=== PATIENT | female | born 1950 | race Caucasian/White ===

== ENCOUNTER 2017-01-24 21:05 | Emergency (ER) | payer MEDICARE ==
[2017-01-24 21:13] VITALS: BP 118/74; PULSE 91; RESP 18; TEMP 99
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
--- NOTE | 2017-01-24 21:41 | XR ---
EXAMINATION TYPE: XR hand complete LT DATE OF EXAM: 01/24/2017 COMPARISON: NONE HISTORY: Pain TECHNIQUE: 3 views FINDINGS: Metacarpals are intact. I see no fracture nor dislocation. There is minor spurring of the I P joints. IMPRESSION: Mild osteoarthritis. No fracture.
--- NOTE | 2017-01-24 21:42 | XR ---
EXAMINATION TYPE: XR wrist complete LT DATE OF EXAM: 01/24/2017 COMPARISON: NONE HISTORY: Pain TECHNIQUE: 4 views FINDINGS: I see no fracture nor dislocation. Joint spaces are normal. IMPRESSION: Negative left wrist exam.
== END 2017-01-24 21:56 | disposition home or self-care (01) ==
LOC: EC 21:05
DX: S60.222A Contusion of left hand, initial encounter (principal); E07.9 Disorder of thyroid, unspecified; F41.9 Anxiety disorder, unspecified; F17.200 Nicotine dependence, unspecified, uncomplicated; Z79.82 Long term (current) use of aspirin; Z79.899 Other long term (current) drug therapy; Z88.5 Allergy status to narcotic agent; W01.0XXA Fall on same level from slipping, tripping and stumbling without subsequent striking against object, initial encounter
CPT/HCPCS: 99284

== ENCOUNTER → 2017-05-11 | Outpatient (CLI) | payer MEDICARE ==
--- NOTE | 2017-05-11 15:42 | XR ---
EXAMINATION TYPE: XR abdomen 2V DATE OF EXAM: 05/11/2017 COMPARISON: NONE HISTORY: Abdominal pain TECHNIQUE: One view abdominal series FINDINGS: The osseous structures are intact. The bowel gas pattern is nonspecific. There is extensive retained fecal debris. Degenerative change of the lumbar spine noted. Mild diffuse osteopenia. Previous surge ry involving the left hip. IMPRESSION: 1. Nonspecific abdomen. Correlate for constipation.
== END | disposition home or self-care (01) ==
LOC: RADXRYALE 14:16
PROVIDERS: ATTEND Physician Assistant Medical
DX: K59.03 Drug induced constipation (principal)
CPT/HCPCS: 74020

== ENCOUNTER 2017-08-25 09:01 | Day surgery (SDC) | payer MEDICARE ==
[2017-08-24 10:05] VITALS: BMI 22.3
[~2017-08-25 09:01] MED LIST: LACTATED RINGERS 1,000 ML IV SCH
[2017-08-25 09:37] VITALS: RESP 16; TEMP 97.9
[2017-08-25] MEDS ORDERED: LIDOCAINE 1% 20 ML VIAL (10MG/ML) FOR IV START INTRADERMA ONE (09:47)
[2017-08-25] MEDS ORDERED: PROPOFOL 10 MG/ML 20 ML VIAL IV ONE (10:29)
[2017-08-25] MEDS ORDERED: LIDOCAINE 1% INJ 10MG/ML (20 ML MDV) ONE (10:29)
[2017-08-25 11:40] VITALS: BP 111/69; PULSE 78
--- NOTE | 2017-08-25 11:55 | P.PCN ---
Date of Procedure: 08/25/17 Procedure(s) Performed: Procedure: Total colonoscopy. Preoperative diagnosis: Change in bowel habits and change in the stools. Postoperative diagnosis: Less than ideal preparation, otherwise, exam to the cecum showed no obvious abnormalities. Preparation: HalfLytely prep. Sedation: Was provided by anesthesia. Brief clinical history: The patient is 66-year-old female was been having issues with worsening constipation and small stools. She had chronic constipation but this has gotten worse. No bleeding or other alarm symptoms. She has some dullness pain in the back on the left side. Her last colonoscopy was in 2010. Procedure: With the patient on her left lateral decubitus position and after informed consent and adequate sedation, the perianal area was inspected and it did not show any fissures or fistulas. There were no masses felt on digital rectal examination. The Olympus CFQ 160L video colonoscope was initially used and was inserted in the rectum and advanced advanced, however, I was not able to keep the lumen distended with this endoscope and I restarted the exam using the pediatric CFH 190 AL videocolonoscope. The preparation was less than ideal and there was thick secretions and fecal debris that could not be suctioned totally consistently. There was no obvious abnormalities seen and, where visualized, the mucosa appeared healthy. I retroflexed the endoscope in the rectum before the endoscope was withdrawn. The patient tolerated the procedure well. Plan: The patient was reassured. She is scheduled for a CT of the abdomen and pelvis next week. Further plans can then be made based on her course and these findings. I would be happy to see in the office if she continues to have these problems. She will follow-up with you as planned.
== END 2017-08-25 12:02 | disposition home or self-care (01) ==
LOC: ORWHC2ENDO 09:01
DX: K59.09 Other constipation (principal); M54.9 Dorsalgia, unspecified; M19.90 Unspecified osteoarthritis, unspecified site; E07.9 Disorder of thyroid, unspecified; F41.9 Anxiety disorder, unspecified; F32.9 Major depressive disorder, single episode, unspecified; Z79.2 Long term (current) use of antibiotics; Z79.890 Hormone replacement therapy; Z79.891 Long term (current) use of opiate analgesic; Z79.899 Other long term (current) drug therapy; Z79.82 Long term (current) use of aspirin; Z88.5 Allergy status to narcotic agent; Z88.2 Allergy status to sulfonamides; F17.210 Nicotine dependence, cigarettes, uncomplicated
CPT/HCPCS: 45378; J2001; J2704

== ENCOUNTER → 2017-08-29 | Outpatient (CLI) | payer MEDICARE ==
[2017-08-29 14:54] LABS: Blood Urea Nitrogen 16 mg/dL (7-17)
--- NOTE | 2017-08-30 08:10 | CT ---
EXAMINATION TYPE: CT abdomen pelvis w con DATE OF EXAM: 08/29/2017 HISTORY: Patient complains of constipation, bloating, and generalized abdominal pain. CT DLP: 371.7mGycm Automated Exposure Control for Dose Reduction was Utilized. CONTRAST: CT scan of the abdomen and pelvis is performed with IV Contrast, patient injected with 100 mL of Omni paque 300. COMPARISON: FINDINGS: LUNG BASES: No significant abnormality is appreciated. LIVER/GB: Liver is unremarkable in enhancement without ductal dilatation. No cholelithiasis. PANCREAS: No significant abnormality is seen. No ductal dilatation. SPLEEN: No significant abnormality is seen. No splenomegaly. ADRENALS: No nodularity or thickening. KIDNEYS: There is obscuration of the right kidney such as on delayed series 7 image 36 and 30 as well as 29 and 28 and series 3 image 29. No hydronephrosis. BOWEL: There is a small posterior medial gastric fundal diverticulum on series 3 image 11 and series 8 image 46. There is a large amount retained colonic stool limiting evaluation of the large bowel. Or al contrast has not progressed into the colon, which also limits evaluation. No bowel dilatation. UTERUS/ADNEXA: Uterus appears surgically absent. Ovaries are not visualized and may be atrophied or s urgically absent. LYMPH NODES: No greater than 1cm abdominal or pelvic lymph nodes are appreciated. OSSEOUS STRUCTURES: Multilevel moderate degenerative disc disease is seen in the lower lumbosacral sp ine with vacuum disc disease at L4-L5 and L5-S1 and air extending into the spinal canal at L4-L5. OTHER: Moderate calcific atheromatous changes are seen in the abdominal aorta and its branches. IMPRESSION: 1. Large amount of retained colonic stool indicating increased transit time/constipation as no oral c ontrast has progressed into the colon. No evidence of bowel obstruction. 2. Subtle striated right nephrogram which can be seen in pyelonephritis, acute renal vein thrombosis, following renal contusion, or hypotension. Correlate with urinalysis. No gross evidence of renal vei n thrombosis. 3. Small posterior medial gastric fundal diverticulum. 4. Moderate degenerative disc disease of the lower lumbosacral spine.
== END | disposition home or self-care (01) ==
LOC: RADCTMAIN 14:12
PROVIDERS: ATTEND Family Medicine
DX: K59.00 Constipation, unspecified (principal); K31.4 Gastric diverticulum
CPT/HCPCS: 82565; 84520; 74177; 36415; Q9967

== ENCOUNTER → 2018-01-02 | Outpatient (CLI) | payer MEDICARE ==
--- NOTE | 2018-01-02 13:55 | XR ---
EXAMINATION TYPE: XR Hip Complete RT DATE OF EXAM: 01/02/2018 COMPARISON: NONE HISTORY: 67-year-old female with right hip pain TECHNIQUE: 2 views FINDINGS: There is mild superolateral joint space narrowing and mild degenerative spurring of the right hip. No acute fracture, subluxation, or dislocation seen. IMPRESSION: Mild degenerative change of the right hip. No acute osseous abnormality seen.
== END | disposition home or self-care (01) ==
LOC: RADXRYALE 10:58
PROVIDERS: ATTEND Family Medicine
DX: M25.551 Pain in right hip (principal)
CPT/HCPCS: 73502

== ENCOUNTER → 2018-02-24 | Outpatient (CLI) | payer MEDICARE ==
--- NOTE | 2018-02-27 01:13 | MR ---
EXAMINATION TYPE: MR hip RT wo con DATE OF EXAM: 02/24/2018 COMPARISON: None HISTORY: Right hip pain for one month Standard multiplanar, multisequence MRI departmental protocol Multiplanar, multisequence images of the pelvis and right hip were acquired. FINDINGS: On the STIR images there is abnormal diffuse increased signal in the right femoral head and neck. I see no fracture line. There is no evidence of acetabular fracture. There is 8mm degenerative cyst in the left acetabulum. There is no free fluid in the pelvis. Bladder distends smoothly. There is mild right-sided hip joint effusion. There is minimal left-sided hip joint effusion. There is mild spurring of the right femoral head. There is no evidence of a pelvic mass. Sacroiliac joints appear intact. 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 Right hip joint effusion is more than the left and consistent with synovitis. No collapse is seen of the right femoral head. No fracture seen. Minimal osteoarthritis in the left hip joint.
== END | disposition home or self-care (01) ==
LOC: RADMRIMAIN 21:42
PROVIDERS: ATTEND Orthopaedic Surgery
DX: M25.451 Effusion, right hip (principal); M16.12 Unilateral primary osteoarthritis, left hip

== ENCOUNTER → 2018-06-06 | Outpatient (CLI) | payer MEDICARE ==
--- NOTE | 2018-06-06 22:54 | MR ---
EXAMINATION TYPE: MR lumbar spine wo con DATE OF EXAM: 06/06/2018 COMPARISON: CT abdomen and pelvis August 29, 2017 HISTORY: Pain lower back, hips, Bilateral legs x6 months per patient. Lumbar region radiculopathy pe r order. TECHNIQUE: Multiplanar, multisequence imaging of the lumbar spine is performed without IV contrast. FINDINGS: Sagittal images of the lumbar spine show vertebral body heights to remain satisfactory. The re is loss of normal lumbar lordosis with grade 1 retrolisthesis of L4 on L5. Multilevel disc desicca tion is present with multilevel disc space narrowing, there is relative sparing of L2-L3 level. Multi level posterior disc herniations are seen on sagittal images effacing the anterior thecal sac most pr ominent at L2-L3 and L4-L5 levels. The conus medullaris is normal in position and signal ending at mi d L1 level.. Small hemangioma inferior L1 level sagittal image 7. There is heterogeneous endplate mireya nges lower lumbar spine including Modic type II changes at L4-L5 level. Mild to moderate multilevel a nterior spurring is seen. Axial images show the T12-L1 level to appear within normal limits. Axial images at L1-L2 level show mild broad disc bulge mildly effacing anterior thecal sac, bilateral neural foramina are patent. Axial images at L2-L3 level show larger left paracentral disc herniation with superior and inferior e xtrusion component seen best sagittal image 7 of effacing the anterior thecal sac measuring 9 to 10 m m transversely axial image 18 x 23 mm craniocaudal dimension sagittal image 7. Bilateral neural kolby anita are mildly narrowed along the anterior-inferior aspect. Axial images at the L3-L4 level show mild to moderate facet degenerative changes and ligamentum flavu m hypertrophy with effacement of the posterior lateral thecal sac. There is broad-based posterior dis c protrusion effacing the anterior thecal sac, there is [id number] bilateral anterior inferior neural foraminal narrowing at this level identified. Axial images at L4-L5 level show spondylolisthesis with mild facet degenerative changes bilaterally. There is prominent left paracentral disc protrusion axial image 7 and sagittal image 7 effacing the a nterolateral thecal sac and likely central left L5 nerve axial image 5. There is moderate left-sided inferior neural foraminal narrowing and mild to moderate right-sided anterior inferior neural foramin al narrowing noted. Axial images at the L5-S1 level show broad-based posterior disc protrusion mildly effacing the anteri or thecal sac with moderate right and mild to moderate left-sided neural foraminal narrowing. There a re mild facet degenerative changes bilaterally. No suspicious incidental retroperitoneal findings are seen. IMPRESSION: Spondylolisthesis L4-L5 level. Multilevel degenerative changes as detailed above, largest herniations are noted L2-L3 and L4-L5 levels.
== END | disposition home or self-care (01) ==
LOC: RADMRIMAIN 21:19
PROVIDERS: ATTEND Physical Medicine & Rehabilitation
DX: M47.27 Other spondylosis with radiculopathy, lumbosacral region (principal); M43.16 Spondylolisthesis, lumbar region
CPT/HCPCS: 72148

== ENCOUNTER → 2019-06-18 | Outpatient (CLI) | payer MEDICARE ==
--- NOTE | 2019-06-18 10:48 | EST ---
EXERCISE STRESS AGE: 68 SEX: F HT: 5'4" WT: 130 PROTOCOL: García Stress Test STAGE: II DURATION OF EXERCISE: 6:30 HEART RATE REST: 81 BLOOD PRESSURE REST: 147/99 MAXIMUM HEART RATE ACHIEVED: 129 MAXIMUM BLOOD PRESSURE: 188/112 85% MPHR: 129 100% MPHR: 152 METS: 7.9 INDICATIONS: Chest pain. CLINICAL INFORMATION: Baseline rhythm is sinus mechanism, rate of 81, normal axis and intervals, poor R-wave progression. RSR prime baseline blood pressure 147/99 mmHg. Patient exercised on García protocol for 6 minutes 30 seconds reaching peak rate of 129 beats per minute which is equal to 85% maximum predicted heart rate. Peak blood pressure 188/112 mmHg. Test was terminated due to fatigue. There is no chest pain. Electrocardiographic monitoring revealed rare PVCs. There was no evidence of diagnostic ischemic ST deviation. CONCLUSION: 1. Average exercise tolerance. 2. Occasional premature ventricular contractions. 3. Normal echocardiograph response to exercise with no evidence of stress-induced ischemia. MMODL / IJN: [id number] /
== END | disposition home or self-care (01) ==
LOC: RADNMMAIN 08:38
PROVIDERS: ATTEND Family Medicine
DX: R07.89 Other chest pain (principal)
CPT/HCPCS: 93017

== ENCOUNTER → 2020-04-03 | Outpatient (CLI) | payer MEDICARE | END | disposition home or self-care (01) | LOC: LABWHC1 10:15 | PROVIDERS: ATTEND Family Medicine | DX: R06.00 Dyspnea, unspecified (principal) | CPT/HCPCS: U0003; C9803 ==

== ENCOUNTER 2020-05-03 12:30 | Observation (INO) | payer MEDICARE ==
[2020-05-03] MEDS ORDERED: ASPIRIN 81 MG PO STA (12:46)
[2020-05-03] MEDS ORDERED: NITROGLYCERIN SL TABS 0.4 MG TAB SUBLINGUAL STA (12:57)
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
[2020-05-03 13:34] LABS: Basophils # (A) 0.1 k/uL (0-0.2); Basophils % (A) 1 %; Eosinophils # (A) 0.2 k/uL (0-0.7); Eosinophils % (A) 3 %; HCT 43.1 % (34.0-46.0); HGB 14.1 gm/dL (11.4-16.0); Lymphocytes # (A) 1.2 k/uL (1.0-4.8); Lymphocytes % (A) 14 %; MCH 30.6 pg (25.0-35.0); MCHC 32.6 g/dL (31.0-37.0); MCV 93.6 fL (80.0-100.0); Mean Platelet Volume 6.2; Monocytes # (A) 0.5 k/uL (0-1.0); Monocytes % (A) 6 %; Neutrophils % (A) 74 %; Platelet Count 359 k/uL (150-450); RBC 4.61 m/uL (3.80-5.40); WBC 8.1 k/uL (3.8-10.6)
[2020-05-03 13:44] LABS: INR 0.9 (<1.2); Partial Thromboplastin Time 23.9 sec (22.0-30.0); Prothrombin Time 9.7 sec (9.0-12.0)
[2020-05-03 13:47] LABS: D-Dimer 1.48 mg/L FEU (<0.60)
[2020-05-03 13:48] LABS: ALT 22 U/L (4-34); AST 25 U/L (14-36); African American GFR (CKD) >90 (>60 ml/min/1.73 sqM); Albumin 4.3 g/dL (3.5-5.0); Alkaline Phosphatase 81 U/L (38-126); Anion Gap 6 mmol/L; Blood Urea Nitrogen 18 mg/dL (7-17); Calcium 9.6 mg/dL (8.4-10.2); Carbon Dioxide 27 mmol/L (22-30); Chloride 105 mmol/L (98-107); Creatine Kinase 79 U/L (30-135); Glucose 113 mg/dL (74-99); Lipase 26 U/L (23-300); Magnesium 2.1 mg/dL (1.6-2.3); Non-African American GFR(CKD) 90 (>60 ml/min/1.73 sqM); Potassium 4.4 mmol/L (3.5-5.1); Sodium 138 mmol/L (137-145); Total Bilirubin 0.5 mg/dL (0.2-1.3); Total Protein 7.4 g/dL (6.3-8.2)
--- NOTE | 2020-05-03 14:04 | XR ---
EXAMINATION TYPE: XR chest 2V DATE OF EXAM: 05/03/2020 CLINICAL HISTORY: Chest Pain. TECHNIQUE: Frontal and lateral view of the chest. COMPARISON: 12/25/2014 chest radiograph FINDINGS: Lungs are hyperinflated with interstitial coarsening. The cardiomediastinal silhouette is within normal limits for size. Pulmonary vasculature is normal. There is no focal air space opacity, pleural effusion, or pneumothorax seen. The osseous structures are intact. IMPRESSION: No acute cardiopulmonary process.
[2020-05-03] MEDS ORDERED: NITROGLYCERIN SL TABS 0.4 MG TAB SUBLINGUAL PRN (15:14)
[2020-05-03] MEDS ORDERED: HEPARIN SODIUM,PORCINE 5,000 UNIT/ML 1 ML VIAL IV ONE (15:14)
--- NOTE | 2020-05-03 15:22 | CT ---
EXAMINATION TYPE: CT angio chest DATE OF EXAM: 05/03/2020 COMPARISON: None HISTORY: Chest and back pain. CT DLP: 240.9 mGycm Automated exposure control for dose reduction was used. CONTRAST: Performed with IV Contrast, patient injected with 80ml mL of Isovue 370. Images obtained from the thoracic inlet to the diaphragm with IV contrast and 3-D post processed imag es. There is 4.3 cm aneurysm of the ascending aorta. There is no dissection. Heart is slightly enlarged. There is no pericardial effusion. There are no hilar masses. There is no mediastinal adenopathy. Ther e is normal contrast opacification of the pulmonary arteries. There are no filling defects. The lungs are clear of consolidation. There is no pleural effusion. There is no evidence of a pulmona ry mass. Bony thorax is intact. IMPRESSION: No evidence of pulmonary embolism. Mild aneurysm of the ascending aorta. Effusion.
--- NOTE | 2020-05-03 15:28 | ED ---
Medical Decision Making - Medical Decision Making Imaging reviewed as well as report no evidence of PE there is a mild a recent aortic aneurysm no other findings. - Lab Data Result diagrams: 05/03/20 13:05 05/03/20 13:05 Lab Results 05/03/20 05/03/20 05/03/20 Range/Units 13:05 13:05 13:05 WBC 8.1 (3.8-10.6) k/uL RBC 4.61 (3.80-5.40) m/uL Hgb 14.1 (11.4-16.0) gm/dL Hct 43.1 (34.0-46.0) % MCV 93.6 (80.0-100.0) fL MCH 30.6 (25.0-35.0) pg MCHC 32.6 (31.0-37.0) g/dL RDW 13.0 (11.5-15.5) % Plt Count 359 (150-450) k/uL Neutrophils % 74 % Lymphocytes % 14 % Monocytes % 6 % Eosinophils % 3 % Basophils % 1 % Neutrophils # 6.0 (1.3-7.7) k/uL Lymphocytes # 1.2 (1.0-4.8) k/uL Monocytes # 0.5 (0-1.0) k/uL Eosinophils # 0.2 (0-0.7) k/uL Basophils # 0.1 (0-0.2) k/uL PT 9.7 (9.0-12.0) sec INR 0.9 (<1.2) APTT 23.9 (22.0-30.0) sec D-Dimer 1.48 H (<0.60) mg/L FEU Sodium 138 (137-145) mmol/L Potassium 4.4 (3.5-5.1) mmol/L Chloride 105 (98-107) mmol/L Carbon Dioxide 27 (22-30) mmol/L Anion Gap 6 mmol/L BUN 18 H (7-17) mg/dL Creatinine 0.68 (0.52-1.04) mg/dL Est GFR (CKD-EPI)AfAm >90 (>60 ml/min/1.73 sqM) Est GFR (CKD-EPI)NonAf 90 (>60 ml/min/1.73 sqM) Glucose 113 H (74-99) mg/dL Calcium 9.6 (8.4-10.2) mg/dL Magnesium 2.1 (1.6-2.3) mg/dL Total Bilirubin 0.5 (0.2-1.3) mg/dL AST 25 (14-36) U/L ALT 22 (4-34) U/L Alkaline Phosphatase 81 (38-126) U/L Creatine Kinase 79 (30-135) U/L Troponin I (0.000-0.034) ng/mL NT-Pro-B Natriuret Pep pg/mL Total Protein 7.4 (6.3-8.2) g/dL Albumin 4.3 (3.5-5.0) g/dL Lipase 26 (23-300) U/L 05/03/20 05/03/20 Range/Units 13:05 13:05 WBC (3.8-10.6) k/uL RBC (3.80-5.40) m/uL Hgb (11.4-16.0) gm/dL Hct (34.0-46.0) % MCV (80.0-100.0) fL MCH (25.0-35.0) pg MCHC (31.0-37.0) g/dL RDW (11.5-15.5) % Plt Count (150-450) k/uL Neutrophils % % Lymphocytes % % Monocytes % % Eosinophils % % Basophils % % Neutrophils # (1.3-7.7) k/uL Lymphocytes # (1.0-4.8) k/uL Monocytes # (0-1.0) k/uL Eosinophils # (0-0.7) k/uL Basophils # (0-0.2) k/uL PT (9.0-12.0) sec INR (<1.2) APTT (22.0-30.0) sec D-Dimer (<0.60) mg/L FEU Sodium (137-145) mmol/L Potassium (3.5-5.1) mmol/L Chloride (98-107) mmol/L Carbon Dioxide (22-30) mmol/L Anion Gap mmol/L BUN (7-17) mg/dL Creatinine (0.52-1.04) mg/dL Est GFR (CKD-EPI)AfAm (>60 ml/min/1.73 sqM) Est GFR (CKD-EPI)NonAf (>60 ml/min/1.73 sqM) Glucose (74-99) mg/dL Calcium (8.4-10.2) mg/dL Magnesium (1.6-2.3) mg/dL Total Bilirubin (0.2-1.3) mg/dL AST (14-36) U/L ALT (4-34) U/L Alkaline Phosphatase (38-126) U/L Creatine Kinase (30-135) U/L Troponin I <0.012 (0.000-0.034) ng/mL NT-Pro-B Natriuret Pep 64 pg/mL Total Protein (6.3-8.2) g/dL Albumin (3.5-5.0) g/dL Lipase (23-300) U/L Disposition Clinical Impression: Unstable angina pectoris, Chest pain, Smoker Disposition: ADMITTED IP TO THIS HOSP Condition: Fair Referrals: Sandip Gimenez DO [Primary Care Provider] - 1-2 days
[2020-05-03] MEDS ORDERED: NICOTINE 21MG/24HR PATCH TRANSDERM STA (15:35)
[2020-05-03] MEDS: SODIUM CHLORIDE 0.9% 1,000 ML IV SCH (15:49)
[2020-05-03] MEDS: HEPARIN SOD,PORK IN 0.45% NACL 25,000 UNIT in 0.45% NACL 1 250ML.BAG IV SCH (15:52)
[2020-05-03] MEDS: HYDROcodone/APAP 10-325MG 1 EACH TAB PO PRN ×2 (16:28→23:21)
[2020-05-03] MEDS: CYCLOBENZAPRINE 10 MG TAB PO SCH ×2 (16:28→23:22)
[2020-05-03] MEDS: VENLAFAXINE HCL ER 75 MG CAP PO SCH (17:47)
[2020-05-03] MEDS: NITROGLYCERIN OINT 1 INCH/GM PACKET TOPICAL SCH (17:50)
[2020-05-03] MEDS ORDERED: ALPRAZolam 0.25 MG TAB PO PRN (20:43)
--- NOTE | 2020-05-03 21:14 | HP ---
HISTORY AND PHYSICAL DATE OF SERVICE: 05/03/2020 This 69-year-old woman with a past medical history of hypothyroidism, psoriasis, constipation, cystic fibrosis being followed by Dr. Gimenez in the outpatient setting, was complaining of chest pain. The patient apparently had a recent stress test which was reported as negative. Pain started under the left breast and felt across, as a crushing pain which is radiating to the back also. The patient also had some sweating also. The patient was concerned, came to [facility] and admitted for further evaluation and treatment. The patient also admits that the patient is going through a stressful period because of the of her a year ago. Otherwise in the ER, the initial troponins are negative. The D-dimer was 1.48. Chest CTA was done which showed no evidence of pulmonary embolism. Mild aneurysm of the ascending aorta was noted and the patient admitted for further evaluation and treatment. The EKG showed left anterior hemiblock. There is no history of fever, rigors, chills at this time. PAST MEDICAL HISTORY: History of hypothyroidism, psoriasis, constipation, appendectomy and breast surgery. MEDICATIONS: Multivitamins, coenzyme Q, vitamin D3, venlafaxine, omega-3 fatty acids, levothyroxine, hydrocodone, Flexeril, aspirin. ALLERGIES: DEMEROL. FAMILY HISTORY: No history of any heart disease. Dad had abdominal aortic aneurysm and during a stress test. SOCIAL HISTORY: History of smoking. REVIEW OF SYSTEMS: ENT: No diminished vision. No diminished hearing. CARDIOVASCULAR as mentioned. RESPIRATORY: As mentioned earlier. GI no nausea or vomiting. no dysuria. NERVOUS SYSTEM: No numbness or weakness. ALLERGY/IMMUNOLOGY: No asthma or hayfever. MUSCULOSKELETAL as mentioned earlier. HEMATOLOGY/ONCOLOGY: No history of anemia. ENDOCRINE: History of diabetes and hypothyroidism. CONSTITUTIONAL: As mentioned earlier. DERMATOLOGY: Negative. RHEUMATOLOGY negative. PSYCHIATRY as mentioned. PHYSICAL EXAMINATION: Alert and oriented times three. Pulse 69. Blood pressure 137/82, respiration 18, temperature 98.1, pulse ox 99% on room air. HEENT: Conjunctivae normal. NECK: No JVD. CARDIOVASCULAR: S1, S2 muffled. RESPIRATORY SYSTEM: Breath sounds diminished at the bases. No rhonchi. No crackles. ABDOMEN: Soft, nontender. No mass palpable. LEGS: No edema. No swelling. NERVOUS SYSTEM: Higher functions as mentioned earlier. Moves all 4 limbs. No focal motor or sensory deficits. SKIN: No ulcer, no rash or bleeding. JOINTS: No active deforming arthropathy. LYMPHATICS: No lymph nodes palpable in the neck, axillae or groin. LABS: CBC within normal limits. D-dimer is 1.48 and glucose 113. ASSESSMENT: 1. Chest pain, possible unstable angina. Rule out myocardial infarction. 2. Minimal thoracic aortic aneurysm about 4.3 cm in the ascending aorta. 3. Elevated D-dimer with no evidence of pulmonary embolism. 4. Family history of abdominal aortic aneurysm. 5. Hypothyroidism. 6. History of psoriasis. 7. Possible chronic bronchitis. 8. History of constipation. 9. Cystic fibrosis. 10.Appendectomy. 11.History of cardiac catheterization. 12.History of lumpectomy. 13.History of anxiety. 14.History of continued ongoing nicotine dependence. RECOMMENDATIONS AND DISCUSSION: This 69-year-old woman who presented with multiple complex medical issues, we will monitor the patient closely, continue the current medications. Rule out myocardial infarction. Cardiology consultation. Also recommend a CT scan of the abdomen and pelvis and also cardiothoracic consultation also to complete the workup because of the family history of abdominal aortic aneurysm. Otherwise, the prognosis guarded because of the multiple complex medical issues and further recommendations to follow. A copy of this dictation being forwarded to Dr. Gimenez who is the primary physician. ALMAS / RCISTA: [id number] /
--- NOTE | 2020-05-03 21:19 | CT ---
EXAMINATION TYPE: CT abdomen pelvis wo con DATE OF EXAM: 05/03/2020 COMPARISON: 08/29/2017 HISTORY: patient denies abdominal/pelvic complaints, question AAA CT DLP: 254.7 mGycm Automated exposure control for dose reduction was used. Exam performed from the diaphragm to the floor the pelvis with no contrast. Lung bases are clear. There is no pleural effusion. There is no pericardial effusion. Heart size is n ormal. Liver spleen stomach pancreas gallbladder appear intact. Bile ducts are not dilated. There are few sm all calcified gallstones. The stomach is intact. There is retained fecal material in the large bowel. Bladder distends smoothly with contrast. There is no inguinal hernia. There is no free fluid in the pelvis. Kidneys have normal size. There is no hydronephrosis. There is no sign of retroperitoneal adenopathy. Ureters are not dilated. There is no ascites or free air. There is no sign of a bowel obstruction. There is some atheromatous change in the abdominal aorta. There is no aneurysm. Abdominal aorta measu res up to 2.8 cm. Lumbar vertebra have normal alignment. There is narrowing at L4-5 and L5-S1 disc spaces with vacuum d isc. Facet joints are intact. The bony pelvis is intact. There is intramedullary nusrat in the left femu r. IMPRESSION: Constipation. No evidence of any significant abdominal aneurysm. Atherosclerotic vascular disease. No adverse change compared to old exam.
[2020-05-03 22:45] LABS: Appearance,Urine Clear (Clear); Bilirubin,Urine Negative (Negative); Blood,Urine Negative (Negative); Color,Urine Yellow; Glucose,Urine (UA) Negative (Negative); Ketones,Urine Negative (Negative); Leukocyte Esterase,Urine Negative (Negative); Nitrite,Urine Negative (Negative); PH, Urine 6.5 (5.0-8.0); Protein,Urine Negative (Negative); Urobilinogen,Urine <2.0 mg/dL (<2.0)
[2020-05-03 22:52] LABS: Specific Gravity,Urine >1.050 (1.001-1.035)
[2020-05-04] MEDS ORDERED: HEPARIN SODIUM,PORCINE 5,000 UNIT/ML 1 ML VIAL IV PRN (00:58)
[2020-05-04] MEDS: HYDROmorphone 0.5 MG/0.5 ML SYRINGE IVP PRN ×2 (01:51→08:06)
[2020-05-04] MEDS: NITROGLYCERIN OINT 1 INCH/GM PACKET TOPICAL SCH ×5 (02:17→22:58)
[2020-05-04] MEDS ORDERED: LEVOTHYROXINE 112 MCG TAB PO SCH (06:30)
[2020-05-04] MEDS: PANTOPRAZOLE 40 MG TABLET PO SCH (06:42)
[2020-05-04 06:56] LABS: Basophils # (A) 0.1 k/uL (0-0.2); Basophils % (A) 1 %; Eosinophils # (A) 0.3 k/uL (0-0.7); Eosinophils % (A) 4 %; HCT 41.6 % (34.0-46.0); HGB 13.2 gm/dL (11.4-16.0); Lymphocytes # (A) 1.5 k/uL (1.0-4.8); Lymphocytes % (A) 24 %; MCH 30.4 pg (25.0-35.0); MCHC 31.8 g/dL (31.0-37.0); MCV 95.6 fL (80.0-100.0); Mean Platelet Volume 6.7; Monocytes # (A) 0.4 k/uL (0-1.0); Monocytes % (A) 7 %; Neutrophils # (A) 3.7 k/uL (1.3-7.7); Neutrophils % (A) 61 %; Platelet Count 317 k/uL (150-450); RBC 4.35 m/uL (3.80-5.40); WBC 6.1 k/uL (3.8-10.6)
[2020-05-04 07:05] LABS: African American GFR (CKD) >90 (>60 ml/min/1.73 sqM); Anion Gap 6 mmol/L; Blood Urea Nitrogen 18 mg/dL (7-17); Calcium 9.3 mg/dL (8.4-10.2); Carbon Dioxide 26 mmol/L (22-30); Chloride 105 mmol/L (98-107); Cholesterol 236 mg/dL (<200); Glucose 105 mg/dL (74-99); HDL Cholesterol 86 mg/dL (40-60); LDL Cholesterol,Calculated 139 mg/dL (0-99); Non-African American GFR(CKD) >90 (>60 ml/min/1.73 sqM); Potassium 4.5 mmol/L (3.5-5.1); Sodium 137 mmol/L (137-145); Triglycerides 56 mg/dL (<150)
[2020-05-04] MEDS: CYCLOBENZAPRINE 10 MG TAB PO SCH ×3 (08:06→23:01)
[2020-05-04] MEDS: VENLAFAXINE HCL ER 75 MG CAP PO SCH (08:06)
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
[2020-05-04] MEDS ORDERED: NON FORMULARY DRUG (Glucosamine/Chondr Su A Sod [Osteo Bi-Flex Caplet] 1 EACH Tablet) PO SCH (09:00)
[2020-05-04] MEDS ORDERED: NON FORMULARY DRUG (Omega-3 Fatty Acids/Fish Oil [Fish Oil 1,000 Mg Softgel] 1 EACH Capsul PO SCH (09:00)
[2020-05-04] MEDS ORDERED: VENLAFAXINE HCL ER 75 MG CAP PO SCH (09:00)
[2020-05-04] MEDS ORDERED: ASPIRIN 325 MG TAB PO SCH (09:00)
[2020-05-04] MEDS ORDERED: CAFFEINE CITRATE 60 MG/3 ML VIAL IV PRN (10:30)
[2020-05-04] MEDS ORDERED: AMINOPHYLLINE 500 MG/20 ML VIAL IV PRN (10:30)
[2020-05-04] MEDS ORDERED: polyethylene glycoL 3350 17 GM POWD.PACK PO PRN (11:27)
[2020-05-04] MEDS ORDERED: DOCUSATE 100 MG CAP PO PRN (11:28)
[2020-05-04 11:30] LABS: T4, Free (Free Thyroxine) 0.62 ng/dL (0.78-2.19)
[2020-05-04] MEDS ORDERED: MULTIVITAMINS, THERA 1 EACH TAB PO SCH (12:00)
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
--- NOTE | 2020-05-04 16:08 | PN ---
PROGRESS NOTE DATE OF SERVICE: 05/04/2020 This 63-year-old woman who was admitted with chest pain is being evaluated at this time. The patient had a 4.3 cm small ascending aortic aneurysm without any evidence of dissection, which was reviewed by cardiothoracic who recommend yearly followup with CT scans. Otherwise, patient also had family history of abdominal aortic aneurysm, but CT scan of the brain did not show any evidence of abdominal aortic aneurysm currently. The patient also has hyperlipidemia with serum cholesterol elevated up to 236, LDL is 139. Patient also has hypothyroidism. TSH is 7.27 and free T4 0.62. PAST MEDICAL HISTORY: Reviewed. REVIEW OF SYSTEMS: CARDIOVASCULAR: No angina or palpitations. RESPIRATORY: As mentioned earlier. GI: As mentioned earlier. : No dysuria. NERVOUS SYSTEM: No numbness or weakness. CURRENT MEDICATIONS: Reviewed and include [place], Xanax, aspirin, Lipitor, Flexeril, Colace, heparin, Dilaudid, Synthroid, multivitamins, Nitrostat MiraLAX, Protonix, Nitro-Bid ointment, Effexor. PHYSICAL EXAM: Patient is alert, oriented x3. Pulse is blood pressure 120/70, respiration 18, temperature 97.2, pulse ox 94% on room air. HEENT: Conjunctivae normal. Oral mucosa moist. NECK: No jugular venous distention. No lymph node enlargement. CARDIOVASCULAR: S1, S2, muffled. No S3, no S4, RESPIRATORY: Diminished breath sounds at the bases. No rhonchi, no crackles. ABDOMEN: Soft, nontender. LEGS: No edema, no swelling. NERVOUS SYSTEM: No focal motor or sensory deficits. LABS: At this time show CBC within normal limits. Sodium 137. Other labs are noted. Glucose 105. ASSESSMENT: 1. Chest pain, possible unstable angina. Myocardial infarction ruled out. Rule out coronary artery disease. 2. Minimal thoracic aortic aneurysm, about 4.3 cm in the ascending aorta. 3. Elevated D-dimer with no evidence of pulmonary embolism. 4. Hyperlipidemia. 5. Family history of abdominal aortic aneurysm. 6. Hypothyroidism. 7. History of psoriasis. 8. Possible chronic bronchitis. 9. History of constipation. 10.History of cystic fibrosis. 11.History of appendectomy. 12.History of cardiac catheterization. 13.History of lumpectomy. 14.History of anxiety. 15.History of continued ongoing nicotine dependence. RECOMMENDATIONS: Recommend to continue current medications, continue symptomatic treatment. Otherwise at this time, unstable angina protocol, stress test tomorrow. I would also recommend add Lipitor to the current regimen. Cardiothoracic surgery recommendations noted. Yearly followup as recommended. Otherwise, closely follow with Cardiology and I would also increase the dose of levothyroxine to 150 mcg p.o. daily. Recommend close follow with Dr. Gimenez, who is the primary physician. MMDARRIUSL / LOVEN: [id number] /
[2020-05-04] MEDS: HEPARIN SOD,PORK IN 0.45% NACL 25,000 UNIT in 0.45% NACL 1 250ML.BAG IV SCH (19:53)
[2020-05-04] MEDS: HYDROcodone/APAP 10-325MG 1 EACH TAB PO PRN (20:38)
[2020-05-04] MEDS: SODIUM CHLORIDE 0.9% 1,000 ML IV SCH (20:41)
[2020-05-04] MEDS ORDERED: ATORVASTATIN 20 MG TAB PO SCH (21:00)
[2020-05-04] MEDS ORDERED: MIRTAZAPINE 15 MG TAB PO SCH (21:00)
[2020-05-05] MEDS: NITROGLYCERIN OINT 1 INCH/GM PACKET TOPICAL SCH (03:50)
[2020-05-05] MEDS: PANTOPRAZOLE 40 MG TABLET PO SCH (06:19)
[2020-05-05] MEDS ORDERED: LEVOTHYROXINE 75 MCG TAB PO SCH (06:30)
[2020-05-05 07:45] LABS: Basophils # (A) 0.1 k/uL (0-0.2); Basophils % (A) 1 %; Eosinophils # (A) 0.2 k/uL (0-0.7); Eosinophils % (A) 3 %; HCT 43.1 % (34.0-46.0); HGB 14.2 gm/dL (11.4-16.0); Lymphocytes # (A) 1.3 k/uL (1.0-4.8); Lymphocytes % (A) 19 %; MCH 30.5 pg (25.0-35.0); MCHC 32.9 g/dL (31.0-37.0); MCV 92.8 fL (80.0-100.0); Mean Platelet Volume 6.3; Monocytes # (A) 0.4 k/uL (0-1.0); Monocytes % (A) 6 %; Neutrophils # (A) 4.5 k/uL (1.3-7.7); Neutrophils % (A) 68 %; Platelet Count 357 k/uL (150-450); RBC 4.65 m/uL (3.80-5.40); RDW 12.9 % (11.5-15.5); WBC 6.6 k/uL (3.8-10.6)
[2020-05-05 07:58] LABS: African American GFR (CKD) >90 (>60 ml/min/1.73 sqM); Anion Gap 5 mmol/L; Blood Urea Nitrogen 16 mg/dL (7-17); Calcium 9.8 mg/dL (8.4-10.2); Carbon Dioxide 28 mmol/L (22-30); Chloride 105 mmol/L (98-107); Glucose 101 mg/dL (74-99); Non-African American GFR(CKD) >90 (>60 ml/min/1.73 sqM); Potassium 4.9 mmol/L (3.5-5.1); Sodium 138 mmol/L (137-145)
[2020-05-05 08:52] VITALS: BP 131/80; PULSE 83; RESP 16; TEMP 97.9
[2020-05-05] MEDS: HYDROcodone/APAP 10-325MG 1 EACH TAB PO PRN (08:53)
[2020-05-05] MEDS: VENLAFAXINE HCL ER 75 MG CAP PO SCH (08:53)
[2020-05-05] MEDS: CYCLOBENZAPRINE 10 MG TAB PO SCH (08:53)
[2020-05-05] MEDS ORDERED: REGADENOSON 0.4 MG/5 ML SYRINGE IV ONE (09:00)
[2020-05-05] MEDS ORDERED: LOSARTAN 25 MG TAB PO SCH (09:00)
[2020-05-05] MEDS ORDERED: ATORVASTATIN 10 MG TAB PO SCH (09:00)
[2020-05-05] MEDS ORDERED: ASPIRIN 81 MG PO SCH (09:00)
--- NOTE | 2020-05-05 12:32 | ECHOF ---
Referral Reason:LVF MEASUREMENTS -------- HEIGHT: 162.6 cm WEIGHT: 59.0 kg BP: IVSd: 1.3 cm (0.6 - 1.1) LVIDd: 4.1 cm (3.9 - 5.3) LVPWd: 1.3 cm (0.6 - 1.1) IVSs: 1.6 cm LVIDs: 2.5 cm LVPWs: 1.7 cm LA Diam: 3.9 cm (2.7 - 3.8) RVIDd: 2.8 cm (< 3.3) Ao Diam: 3.5 cm (2.0 - 3.7) AV Cusp: 1.9 cm (1.5 - 2.6) EPSS: 0.9 cm MV E Stephen: 0.42 m/s MV DecT: 298 ms MV A Stephen: 0.66 m/s MV E/A Ratio: 0.63 RAP: 5.00 mmHg RVSP: 20.42 mmHg MV EF SLOPE: 60.34 mm/s (70 - 150) MV EXCURSION: 15.49 mm (> 18.000) FINDINGS -------- Sinus rhythm. This was a technically good study. The left ventricular size is normal. There is mild concentric left ventricular hypertrophy. Overa ll left ventricular systolic function is low-normal with, an EF between 50 - 55 %. The right ventricle is normal in size. The left atrial size is normal. The right atrial size is normal. The aortic valve is trileaflet, and appears structurally normal. No aortic stenosis or regurgitation. Mild mitral regurgitation is present. Mild tricuspid regurgitation present. Right ventricular systolic pressure is normal at < 35 mmHg. Trace/mild (physiologic) pulmonic regurgitation. Ascending Aortic Root is dilated and measures 4.0cm. There is no pericardial effusion. CONCLUSIONS -------- 1. The left ventricular size is normal. 2. There is mild concentric left ventricular hypertrophy. 3. Overall left ventricular systolic function is low-normal with, an EF between 50 - 55 %. 4. The right ventricle is normal in size. 5. The left atrial size is normal. 6. The right atrial size is normal. 7. Mild mitral regurgitation is present. 8. Mild tricuspid regurgitation present. 9. Trace/mild (physiologic) pulmonic regurgitation. 10. Ascending Aortic Root is dilated and measures 4.0cm. 11. There is no pericardial effusion. ACTIVITY DIRECTOR: Myriam Desai RDCS
--- NOTE | 2020-05-05 12:34 | P.PN ---
Subjective History of present illness: This is a 69-year-old female with past medical history of hypothyroidism, active tobacco use and dependence. No previous cardiac history and she does not follow with a overseamer. She did have a normal exercise stress test done in May 2019. She is seen and examined sitting up eating breakfast. She was scheduled to undergo a stress test today, however she is refusing. She states today is a bad day for her, her 1-year ago today. She is willing to have an echo but would like to go home and do the stress test another day. She denies any further symptoms of chest pain. No shortness of breath, dizziness or palpitations. Blood pressure 131/80 heart rate 83 afebrile and maintaining oxygen saturation on room air. Physical examination: NECK: Supple. No JVD. No lymphadenopathy. No thyromegaly. LUNGS: Clear to auscultation bilaterally, no wheezes, rhonchi or rales. HEART: Regular rate and rhythm. No murmur, rub or gallop. EXTREMITIES: No pedal edema. No calf tenderness. Dorsalis pedis +2 bilaterally. Assessment: Chest pain, an acute coronary event has been ruled out. Recent normal stress test 05/2019 Dyslipidemia Hypertension Chronic nicotine dependence Hypothyroidism Plan: Stable to be discharged home from a cardiac perspective. Recommend initiating lipitor at 10 mg daily and assess for muscle aches. If she can tolerate we will increase to 20 mg in the outpatient setting. nursing home smoking cessation discussed as well as diet and exercise for lowering of LDL cholesterol. Initiate small dose of losartan 25 mg daily for optimal blood pressure control. Follow up in the office with Dr. Gerard upon discharge for outpatient stress test. Nurse practitioner note has been reviewed, I agree with documented findings and plan of care. Patient was seen and examined. Objective - Vital Signs Vital signs: Vital Signs Temp 97.9 F 05/05/20 08:51 Pulse 83 05/05/20 08:51 Resp 16 05/05/20 08:51 BP 131/80 05/05/20 08:51 Pulse Ox 94 L 05/05/20 08:51 Intake & Output 05/04/20 05/05/20 05/05/20 18:59 06:59 18:59 Intake Total 480 490 Output Total 0 Balance 480 490 Intake: Oral 480 490 Output: Urine 0 Other: # Voids 1 0 # Bowel Movements 1 1 - Labs CBC & Chem 7: 05/05/20 07:23 05/05/20 07:23 Labs: Abnormal Lab Results - Last 24 Hours (Table) 05/05/20 Range/Units 07:23 Glucose 101 H (74-99) mg/dL
[2020-05-05] MEDS ORDERED: ATORVASTATIN 20 MG TAB PO SCH (21:00)
--- NOTE | 2020-05-06 12:03 | DS ---
DISCHARGE SUMMARY DATE OF SERVICE: 05/05/2020 FINAL DIAGNOSES: 1. Chest pain possible unstable angina. Myocardial infarction ruled out. The patient refused Lexiscan stress test. 2. Minimal thoracic aortic aneurysm about 4.3 cm in the ascending aorta. 3. Elevated D-dimer with no evidence of pulmonary embolism. 4. Hyperlipidemia. 5. Family history of abdominal aortic aneurysm. 6. Hypothyroidism. 7. History of psoriasis. 8. History of chronic bronchitis, possibly. 9. History of constipation. 10.History of cystic fibrosis. 11.History of appendectomy. 12.History of cardiac ablation. 13.History of lumpectomy. 14.History of anxiety. 15.History of continued ongoing nicotine dependence. DISCHARGE DISPOSITION: The patient will be discharged in stable condition with guarded prognosis. Cardiology cleared the patient. HISTORY OF PRESENT ILLNESS: This is a 69-year-old woman with a past medical history of multiple medical problems, myocardial infarction ruled out. Cardiology recommended a Lexiscan stress test, but the patient refused because the patient's mom apparently on the same day previously. Stress test stable, so the patient was willing to have an outpatient followup and possibly do an exercise stress test at this time. The dose of Synthroid was slightly increased because of the high TSH and low free T4. On exam, vitals are stable. CARDIOVASCULAR: S1, S2, muffled. ABDOMEN: Soft. NERVOUS SYSTEM: No focal discharge. Diet is cardiac diet. Activity limited until followup. Follow up with Dr. Gimenez in 2-3 days. Follow up with Cardiology as recommended. Follow up with Dr. Gayle on a yearly basis and repeat CAT scan for minimally abnormal aorta. DISCHARGE MEDICATIONS: 1. Aspirin 81 mg daily. 2. Coenzyme Q 100 mg daily. 3. [place]-3 fatty acids p.o. daily. 4. Flexeril 10 mg q.i.d. 5. Hydrocodone p.r.n. 6. Multivitamins 1 p.o. daily. 7. Effexor 75 mg p.o. daily. 8. Vitamin D3 two thousand daily. 9. Cozaar 25 mg p.o. daily. 10.Lipitor 10 mg p.o. daily. 11.Synthroid 150 mcg p.o. daily. To be followed by Dr. Gimenez in the outpatient setting. Once again, the patient will discharged in a stable condition with guarded prognosis. MMODL / IJN: [id number] /
== END 2020-05-05 11:17 | disposition home or self-care (01) ==
LOC: EC 12:30 → 3NCARDOBS 15:14
PROVIDERS: ADMIT Internal Medicine; ATTEND Internal Medicine
DX: R07.89 Other chest pain (principal); R61 Generalized hyperhidrosis; H92.03 Otalgia, bilateral; M54.2 Cervicalgia; R06.00 Dyspnea, unspecified; R06.02 Shortness of breath; I71.2 Thoracic aortic aneurysm, without rupture; M79.602 Pain in left arm; R79.1 Abnormal coagulation profile; E78.5 Hyperlipidemia, unspecified; E03.9 Hypothyroidism, unspecified; L40.9 Psoriasis, unspecified; E84.9 Cystic fibrosis, unspecified; K86.81 Exocrine pancreatic insufficiency; F41.9 Anxiety disorder, unspecified; F17.210 Nicotine dependence, cigarettes, uncomplicated; I10 Essential (primary) hypertension; I44.4 Left anterior fascicular block; N60.12 Diffuse cystic mastopathy of left breast; N60.11 Diffuse cystic mastopathy of right breast; Z79.82 Long term (current) use of aspirin; Z79.899 Other long term (current) drug therapy; Z79.890 Hormone replacement therapy; Z88.5 Allergy status to narcotic agent; Z87.19 Personal history of other diseases of the digestive system; Z98.890 Other specified postprocedural states; Z90.49 Acquired absence of other specified parts of digestive tract; Z90.710 Acquired absence of both cervix and uterus; Z87.42 Personal history of other diseases of the female genital tract; Z90.721 Acquired absence of ovaries, unilateral; Z87.81 Personal history of (healed) traumatic fracture; Z63.4 Disappearance and death of family member; Z71.6 Tobacco abuse counseling; Z71.89 Other specified counseling; Z82.49 Family history of ischemic heart disease and other diseases of the circulatory system; Z80.1 Family history of malignant neoplasm of trachea, bronchus and lung
CPT/HCPCS: 93005 ×2; 96366 ×2; 96375; 96376 ×2; 96365; 99291; 36415; 94760; 93306; 85379; 84439; 83880; 80061; 80053; 80048 ×2; 84443; 82550; 83690; 83735; 84484; 85025 ×3; 85610; 85730 ×2; 81003; 71046; 71275; 74176; G0378 ×3; S4990; J1644 ×3; J2785; J1170; Q9967

== ENCOUNTER → 2021-12-25 | Outpatient (CLI) | payer OTHER, MEDICARE ==
--- NOTE | 2021-12-27 09:05 | XR ---
EXAMINATION TYPE: XR Hip Bilateral Complete DATE OF EXAM: 12/25/2021 2:24 PM INDICATION: Patient age:Female; 71 years old; Reason for study: [id number] ELDON HIP PAIN. COMPARISON: MR Hip 09/11/2017, right hip radiograph 01/02/2018 TECHNIQUE: The bilateral hips were examined in the frontal and lateral projections and a AP pelvis. FINDINGS: There is osteophyte formation involving the acetabulum and femoral head, right greater than left. There is fixation hardware with intramedullary" involving the left femur. No fracture of the l eft mid structure demonstrates osseous fusion. Hardware appears intact. No evidence of acute fracture . There is multilevel disc degeneration changes of the visualized spine. IMPRESSION: 1. No acute osseous pathology. 2. 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 Remote left mid femur fracture with hardware in place and intact.
== END | disposition home or self-care (01) ==
LOC: RADXRYALE 14:08
PROVIDERS: ATTEND Family Medicine
DX: M16.0 Bilateral primary osteoarthritis of hip (principal)
CPT/HCPCS: 73521

== ENCOUNTER → 2023-04-01 | Outpatient (CLI) | payer MEDICARE ==
--- NOTE | 2023-04-01 10:17 | MM ---
Reason for Exam: Additional evaluation requested from abnormal screening. Last screening mammogram was performed less than 1 month ago. Patient History: Menarche at age 13. First Full-Term at age 17. Left ovary removed at age 29. Hysterectomy at age 29. Postmenopausal. Estrogen for 20 years from age 29 until age 49. Benign Excisional Biopsy. Benign Excisional Biopsy. Risk Values: Ashely 5 year model risk: 1.9%. NCI Lifetime model risk: 5.0%. Prior Study Comparison: 10/10/2009 Bilateral Screening Mammogram, [facility]. 05/10/2014 Bilateral Screening Mammogram, [facility]. 03/24/2023 Bilateral MG 3D screening mammo w/cad, [facility]. Tissue Density: Left: The breast tissue is heterogeneously dense. This may lower the sensitivity of mammography. Findings: Analyzed By CAD. No persistent nodule or mass. No destruction seen. Overall Assessment: Negative, BI-RAD 1 Management: Screening Mammogram of both breasts in 1 year. . Results were given to the patient verbally at the time of exam. Patient should continue monthly self-breast exams. A clinical breast exam by your physician is recommended on an annual basis. This exam should not preclude additional follow-up of suspicious palpable abnormalities. Note on Ashely scores and lifetime risk: 1. A Ashely score greater than 3% is considered moderate risk. If this is the case, consider specialist referral to assess eligibility for a risk reducing agent. 2. If overall lifetime risk for the development of breast cancer is 20% or higher, the patient may qualify for future screening with alternating mammogram and breast MRI. Electronically signed and approved by: Crow Thornton M.D. Radiologis
== END | disposition home or self-care (01) ==
LOC: RADMAMWWP 09:35
PROVIDERS: ATTEND Family Medicine
DX: R92.2 Inconclusive mammogram (principal); Z78.0 Asymptomatic menopausal state
CPT/HCPCS: 77065; G0279; 77061

== ENCOUNTER → 2023-06-10 | Outpatient (CLI) | payer MEDICARE ==
--- NOTE | 2023-06-10 17:05 | XR ---
EXAMINATION TYPE: XR abdomen 1V DATE OF EXAM: 06/10/2023 4:47 PM CLINICAL INDICATION:Female, 72 years old with history of [id number] CONSTIPATION; [facility] COMPARISON: 05/03/2020 TECHNIQUE: One radiographic view of the abdomen was obtained. FINDINGS: The there is a large stool burden throughout the colon. Bowel gas pattern is nonspecific wi thout dilated loops of small or large bowel. There is no evidence for organomegaly or pneumoperitoneu m. The osseous structures are intact. No abnormal calcifications are present. Fecal material and ga s are demonstrated throughout the colon and rectum. Right hip arthroplasty changes with hardware int act. Left intramedullary fixation nusrat within the left femur appears intact. Multilevel degeneration c hanges spine. IMPRESSION: Large stool burden throughout the colon Nonspecific bowel gas pattern without radiographic evidence f or acute process.
== END | disposition home or self-care (01) ==
LOC: RADXRYALE 16:38
PROVIDERS: ATTEND Family Medicine
DX: K59.00 Constipation, unspecified (principal); R14.0 Abdominal distension (gaseous)
CPT/HCPCS: 74018

== ENCOUNTER → 2023-06-30 | Outpatient (CLI) | payer MEDICARE ==
[2023-06-30 12:08] LABS: African American GFR (CKD) >90 (>60 ml/min/1.73 sqM); Blood Urea Nitrogen 19 mg/dL (7-17); Non-African American GFR(CKD) 89 (>60 ml/min/1.73 sqM)
--- NOTE | 2023-06-30 14:06 | CT ---
EXAMINATION TYPE: CT abdomen pelvis w con DATE OF EXAM: 06/30/2023 HISTORY: constipation and nausea x2 weeks CT DLP: 1065mGycm Automated Exposure Control for Dose Reduction was Utilized. CONTRAST: CT scan of the abdomen and pelvis is performed with IV Contrast, patient injected with 100 mL of Isov ue 300. COMPARISON: Prior CT May 03, 2020 FINDINGS: LUNG BASES: Stable nonspecific 6 mm right basilar nodule axial image 2. LIVER/GB: There are 2 small dependent gallstones redemonstrated. Gallbladder shows no new surrounding fluid or fat stranding. PANCREAS: No significant abnormality is seen. SPLEEN: No significant abnormality is seen. ADRENALS: No significant abnormality is seen. KIDNEYS: No significant abnormality is seen. BOWEL: Oral contrast reaches level of the hepatic flexure. Evaluation of distal bowel slightly subopt imal due to lack of contrast at this level. No abnormal small or large bowel dilatation. Moderate pro ximal colonic fecal prominence on current study. UTERUS/ADNEXA: Uterus is surgically absent. LYMPH NODES: No greater than 1cm abdominal or pelvic lymph nodes are appreciated. OSSEOUS STRUCTURES: Metallic artifact from total right hip arthroplasty is now present causing streak artifact making evaluation of pelvic structures suboptimal. Surgical changes to the left proximal fe mur is partially imaged similar to prior. Yipzrwkp-lp-[id number] disc space narrowing and vacuum disc phe nomenon at L2-L3 and L4-L5 levels is now present. OTHER: No significant additional abnormality is seen. IMPRESSION: Moderate proximal colonic fecal stasis or constipation. No bowel obstruction. Otherwise n o significant new acute finding present to account for patient's symptoms.
== END | disposition home or self-care (01) ==
LOC: RADCTMAIN 11:02
PROVIDERS: ATTEND Family Medicine
DX: R11.0 Nausea (principal); R10.84 Generalized abdominal pain; R19.4 Change in bowel habit
CPT/HCPCS: 82565; 84520; 74177; 36415; Q9967

== ENCOUNTER 2023-10-12 10:01 | Day surgery (SDC) | payer MEDICARE ==
[2023-10-10 15:31] VITALS: BMI 26.6
[2023-10-12] MEDS: LACTATED RINGERS 1,000 ML IV SCH (10:40)
[2023-10-12] MEDS ORDERED: PROPOFOL 10 MG/ML 20 ML VIAL IV ONE (11:05)
[2023-10-12 11:16] VITALS: TEMP 98.7
--- NOTE | 2023-10-12 11:24 | P.PCN ---
Date of Procedure: 10/12/23 Procedure(s) Performed: BRIEF HISTORY: Patient is a 70-year-old pleasant White female scheduled for an elective colonoscopy as a part of Evaluation of change in bowel habits for the last 6 months duration. PROCEDURE PERFORMED: Colonoscopy with snare polypectomy PREOPERATIVE DIAGNOSIS: Change in bowel habit IV sedation per Anesthesia. PROCEDURE: After informed consent was obtained, the patient, was brought into the endoscopy unit. IV sedation was administered by Anesthesia under continuous monitoring. Digital rectal examination was normal. Initially the Olympus CF-160 flexible video colonoscope was then inserted in the rectum, gradually advanced into the cecum without any difficulty. Careful examination was performed as the scope was gradually being withdrawn. Ileocecal valve and the appendiceal orifice were visualized and appeared normal. Prep was excellent. Mucosa of the cecum, ascending colon,Appeared normal. In the transverse colon there was a 7 mm a broad-based polyp removed by cold snare polypectomy. Rest of the transverse colon, descending colon, sigmoid colon, and rectum appeared normal. Retroflexion was performed in the rectum and no lesions were seen. The patient tolerated the procedure well. IMPRESSION: 7 mm broad-based transverse colon polyp status post cold snare polypectomy Rest of the colon appeared normal RECOMMENDATIONS: Findings of this examination were discussed with the patient As well as a family. She was advised to follow with the biopsy results. If the biopsy results adenoma she can have a repeat colonoscopy in 5 years.
[2023-10-12 12:00] VITALS: BP 128/80; PULSE 70; RESP 16
== END 2023-10-12 12:03 | disposition home or self-care (01) ==
LOC: ORWHC2ENDO 10:01
PROVIDERS: ATTEND Internal Medicine Gastroenterology
DX: D12.3 Benign neoplasm of transverse colon (principal); I10 Essential (primary) hypertension; I20.9 Angina pectoris, unspecified; E78.5 Hyperlipidemia, unspecified; E07.9 Disorder of thyroid, unspecified; F41.9 Anxiety disorder, unspecified; F17.210 Nicotine dependence, cigarettes, uncomplicated; Z91.048 Other nonmedicinal substance allergy status; Z79.899 Other long term (current) drug therapy; Z79.82 Long term (current) use of aspirin; Z79.890 Hormone replacement therapy; Z79.01 Long term (current) use of anticoagulants; Z90.710 Acquired absence of both cervix and uterus; Z90.49 Acquired absence of other specified parts of digestive tract; Z98.890 Other specified postprocedural states
CPT/HCPCS: 88305; 45380; 45385; J2704

== ENCOUNTER 2024-05-18 18:40 | Inpatient (IN) | payer MEDICARE ==
[2024-05-18] MEDS: SODIUM CHLORIDE 0.9% 1,000 ML IV ONE (19:07)
[2024-05-18 19:13] LABS: Basophils % (A) 1 %; Eosinophils # (A) 0.1 k/uL (0-0.7); Eosinophils % (A) 2 %; HCT 33.9 % (34.0-46.0); Lymphocytes # (A) 1.1 k/uL (1.0-4.8); Lymphocytes % (A) 17 %; MCH 29.9 pg (25.0-35.0); MCHC 32.4 g/dL (31.0-37.0); MCV 92.3 fL (80.0-100.0); Mean Platelet Volume 6.5; Monocytes # (A) 0.5 k/uL (0-1.0); Monocytes % (A) 7 %; Neutrophils # (A) 4.5 k/uL (1.3-7.7); Neutrophils % (A) 72 %; Platelet Count 289 k/uL (150-450); RBC 3.67 m/uL (3.80-5.40); RDW 13.3 % (11.5-15.5); WBC 6.3 k/uL (3.8-10.6)
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
[2024-05-18] MEDS: NITROGLYCERIN OINT 1 INCH/GM PACKET TOPICAL STA (19:26)
[2024-05-18] MEDS: ASPIRIN 81 MG PO STA (19:26)
--- NOTE | 2024-05-18 19:35 | XR ---
EXAMINATION TYPE: XR chest 2V DATE OF EXAM: 05/18/2024 7:30 PM COMPARISON: Previous chest radiograph 05/03/2020. CLINICAL INDICATION: Female, 73 years old with history of Chest Pain; [facility] TECHNIQUE: XR chest 2V Frontal and lateral views of the chest. FINDINGS: Mild cardiomegaly, possibly technique related. No acute focal consolidation. No pleural effusion. No pneumothorax. No acute osseous abnormality. IMPRESSION: No acute cardiopulmonary disease/process. [facility], , 05/18/2024 7:33 PM
[2024-05-18 19:39] LABS: ALT 17 U/L (4-34); AST 20 U/L (14-36); African American GFR (CKD) 85 (>60 ml/min/1.73 sqM); Albumin 3.8 g/dL (3.5-5.0); Alkaline Phosphatase 77 U/L (38-126); Anion Gap 6 mmol/L; Blood Urea Nitrogen 26 mg/dL (7-17); Calcium 9.1 mg/dL (8.4-10.2); Carbon Dioxide 28 mmol/L (22-30); Chloride 102 mmol/L (98-107); Glucose 92 mg/dL (74-99); Magnesium 2.1 mg/dL (1.6-2.3); Non-African American GFR(CKD) 74 (>60 ml/min/1.73 sqM); Potassium 3.9 mmol/L (3.5-5.1); Sodium 136 mmol/L (137-145); Total Bilirubin 0.3 mg/dL (0.2-1.3); Total Protein 6.2 g/dL (6.3-8.2)
[2024-05-18] MEDS ORDERED: NITROGLYCERIN SL TABS 0.4 MG TAB SUBLINGUAL PRN (20:15)
[2024-05-18 21:37] LABS: Partial Thromboplastin Time 21.9 sec (22.0-30.0); Prothrombin Time 10.7 sec (10.0-12.5)
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
[2024-05-18] MEDS ORDERED: ALPRAZolam 0.25 MG TAB PO PRN (23:17)
[2024-05-18] MEDS: ATORVASTATIN 80 MG TAB PO STA (23:56)
[2024-05-18] MEDS: NITROGLYCERIN OINT 1 INCH/GM PACKET TOPICAL SCH (23:57)
[2024-05-19] MEDS: LEVOTHYROXINE 125 MCG TAB PO SCH (06:30)
[2024-05-19] MEDS: PANTOPRAZOLE 40 MG TABLET PO SCH (08:06)
[2024-05-19] MEDS: ASPIRIN 325 MG TAB PO SCH (08:06)
[2024-05-19] MEDS: GABAPENTIN 100 MG CAP PO SCH (08:06)
[2024-05-19] MEDS: oxyCODONE-APAP 5-325MG 1 EACH TAB PO SCH (08:06)
[2024-05-19] MEDS: VENLAFAXINE HCL ER 75 MG CAP PO SCH (08:06)
[2024-05-19] MEDS: ENOXAPARIN 40 MG/0.4 ML SYRINGE SQ SCH (08:06)
[2024-05-19] MEDS: polyethylene glycoL 3350 17 GM POWD.PACK PO SCH (08:08)
[2024-05-19] MEDS: METOPROLOL TARTRATE 12.5 MG TAB PO SCH (08:08)
[2024-05-19] MEDS: LOSARTAN 50 MG TAB PO SCH (08:08)
[2024-05-19 09:00] LABS: HCT 31.4 % (34.0-46.0); HGB 10.5 gm/dL (11.4-16.0); MCH 30.8 pg (25.0-35.0); MCHC 33.3 g/dL (31.0-37.0); MCV 92.5 fL (80.0-100.0); Mean Platelet Volume 6.6; Platelet Count 239 k/uL (150-450); RBC 3.39 m/uL (3.80-5.40); RDW 13.5 % (11.5-15.5); WBC 8.2 k/uL (3.8-10.6)
--- NOTE | 2024-05-19 11:56 | P.PN ---
Subjective Progress Note Date: 05/19/24 Hospital course: Patient is a very pleasant 73-year-old female with a past medical history of CAD, angina, hypertension, hyperlipidemia, and hypothyroidism. She presented to the emergency department on 05/18/2024 secondary to a chief complaint of chest pain followed by syncopal episode. Patient reports she was standing at her sink doing dishes and became diaphoretic and nauseous so she sat down at the table and thought she would rest and start to june when she suddenly began to have a severe pain to her midsternal chest radiating into her back. She reports the pain was so severe she reached for her nitro and took 1 tab under her tongue and waited 5 minutes but the pain did not go away and she noted she was now having a pressure-like sensation in her jaw so she took a second nitro tab and told her grandson that she does not feel right and he better call for an ambulance. She reports the next thing she remembers is waking up on the ground with her grandson and granddaughter at her side. Patient reports her grandson stated that after she told him to call the ambulance that she simply slumped over and passed out but luckily her granddaughter was there and caught her so she did not fall and they lowered her to the ground safely. She reports when she awoke the chest pain was still there along with the nausea but states by the time EMS got there the chest pain had resolved and the only thing that remained was her olivier sea. Patient reports 1 previous episode of this 2 years ago where she underwent a cardiac cath at [facility] and was told she had some coronary artery disease but not significant enough to stent at that time. Patient states she was at her daughter's house at that time and does not have a local film library clerk and therefore only followed up with her primary care doctor. On arrival to our facility, patient underwent evaluation in the emergency department. Vital signs upon arrival show blood pressure 96/58, heart rate 63, respiratory rate 18, temp 97.4 F, and SpO2 of 90% on room air.. EKG was completed showing normal sinus rhythm at 64 bpm with no significant T wave or ST abnormality showing no signs of acute ischemia upon personal review and interpretation. Chest x-ray completed negative for acute cardiopulmonary process. Labs were completed and reviewed. CBC showing stable normocytic anemia with hemoglobin of 11.0. Coagulation profile showing low PTT of 21.9 otherwise normal findings. BMP showing mild prerenal azotemia with BUN of 26 otherwise normal findings. Blood glucose was 92. Magnesium 2.1. Liver profile unremarkable. Troponin was negative at less than 0.012. Patient admitted under our services with consultation to cardiology. Troponins were trended overnight all negative at less than 0.012 x 3 draws. Repeat morning EKG was completed showing normal sinus rhythm at 78 bpm with no noted T wave or ST abnormalities upon personal review and interpretation. Patient reports she remains free from any further episodes of chest pain since arrival to our facility. Physical exam: Patient seen and fully evaluated at bedside this morning. She reports having a headache and some nausea, but states her chest pain, back pain, and jaw pain has not returned. Denies experiencing any other complaints including headache, lightheadedness, dizziness, changes in vision or hearing, palpitations, sh ortness of breath, cough or congestion, episodes of vomiting, or experiencing any numbness/tingling/weakness/swelling in her extremities. Vital signs reviewed and stable. General: Nontoxic, no distress and appears stated age. Derm: Skin warm and dry, normal coloration for ethnicity. Head: Atraumatic, normocephalic and symmetric. Eyes: EOM's intact, no lid lag, and anicteric sclera Mouth: no lip lesions, mucus membranes moist Cardiovascular: regular rate and rhythm with normal S1S2, no murmur, positive posterior tibial pulses bilaterally, and cap refill < 2 seconds. Lungs: Respirations even, regular, and unlabored on room air. Lungs CTA bilaterally, no rhonchi, no rales, no wheezing, and no accessory muscle usage. Abdominal: soft, nontender to palpation, no guarding, no appreciable organomegaly Ext: ROM intact. No gross muscle atrophy, no edema, no contractures Neuro: Speech clear, face symmetrical and CN II-XII grossly intact with no noted focal neuro deficits Psych: Alert and oriented to person, place, time, and situation. Appropriate and pleasant affect. Assessment and Plan of Care: Chest pain, acute coronary event ruled out History of CAD Hypertension Hyperlipidemia -Cardiology consulted, appreciate recommendations -Telemetry monitoring -Troponins trended and all negative at less than 0.012 x 3 draws. -Continue aspirin 81 mg daily, atorvastatin 80 mg nightly, losartan 100 mg angel ly, metoprolol 12.5 mg twice daily, and as needed sublingual nitro 0.4 mg tablets as needed for chest pain. -Lipid profile pending. -Echocardiogram Hypothyroidism -Continue daily medication regimen with levothyroxine 125 mcg daily. Anxiety -Continue Effexor 75 mg daily. Data and imaging reviewed: -Labs reviewed. CBC remains showing stable normocytic anemia with hemoglobin of 10.5. Troponins were trended overnight all negative at less than 0.012 x 3 draws. -Repeat morning EKG was completed showing normal sinus rhythm at 78 bpm with no noted T wave or ST abnormalities upon personal review and interpretation. -Vital signs reviewed. Blood pressure 100/67, heart rate 73, respiratory rate 16, and SpO2 of 97% on room air. CODE STATUS: Full code DVT prophylaxis: Lovenox Anticipated discharge date: Pending clinical course likely 24 to [address]: Home Patient was seen independently by Nurse Pracitioner. This document was prepared using [employer] dictation software. Please allow for errors in electrical service technician, while rare they do occur. Hardy Ball NP rendered care for this patient independently, reviewed the findings and plan as documented in the note above and agree with plan. I did not physically speak with or examine the patient on this date. Objective - Vital Signs Vital signs: Vital Signs Temp 97.4 F L 05/18/24 18:43 Pulse 73 05/19/24 08:05 Resp 16 05/19/24 08:05 BP 100/67 05/19/24 08:05 Pulse Ox 97 05/19/24 08:05 FiO2 Intake & Output 05/18/24 05/19/24 05/19/24 18:59 06:59 18:59 Weight 66.224 kg - Labs CBC & Chem 7: 05/19/24 08:25 05/18/24 19:01 Labs: Abnormal Lab Results - Last 24 Hours (Table) 05/18/24 05/18/24 05/18/24 Range/Units 19:01 19:01 19:49 RBC 3.67 L (3.80-5.40) m/uL Hgb 11.0 L (11.4-16.0) gm/dL Hct 33.9 L (34.0-46.0) % APTT 21.9 L (22.0-30.0) sec Sodium 136 L (137-145) mmol/L BUN 26 H (7-17) mg/dL Total Protein 6.2 L (6.3-8.2) g/dL
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
[2024-05-19] MEDS: KETOROLAC 15 MG/ML 1 ML VIAL IVP STA (12:21)
[2024-05-19] MEDS: diphenhydrAMINE 50 MG/ML 1 ML VIAL IVP STA (12:21)
[2024-05-19 13:49] LABS: Chol/HDL Ratio 2.12 Ratio; Iron 52 UG/DL (50-170); Total Iron Binding Capacity 349 UG/DL (228-460); VLDL Calculation 13.28 mg/dL (5.00-40.00)
[2024-05-19 15:07] LABS: Magnesium 2.3 mg/dL (1.6-2.3)
[2024-05-19 15:18] LABS: NT-Pro-B-Type Natriuretic Pept 28 pg/mL
[2024-05-19] MEDS: CYCLOBENZAPRINE 10 MG TAB PO SCH (15:21)
[2024-05-19 17:28] LABS: T4, Free (Free Thyroxine) 1.36 ng/dL (0.78-2.19)
--- NOTE | 2024-05-19 18:06 | CA ---
Transthoracic Echo Report Name: Concha Bartlett Age: 73 Gender: F : 1950 Exam Date: 05/19/2024 11:11 Exam Location: [facility] Ht (in): 64 Wt (lb): 146 Ordering Physician: Criss Adams MD Attending/Referring Phys: Finish Molder Marilee Sherwood RDCS Procedure CPT: Indications: CP and syncopal episode Cardiac Hx: Technical Quality: Fair Contrast 1: Total Dose (mL): Contrast 2: Total Dose (mL): MEASUREMENTS (Male / Female) Normal Values 2D ECHO LV Diastolic Diameter PLAX 3.9 cm 4.2 - 5.9 / 3.9 - 5.3 cm LV Systolic Diameter PLAX 2.6 cm IVS Diastolic Thickness 1.2 cm 0.6 - 1.0 / 0.6 - 0.9 cm LVPW Diastolic Thickness 1.1 cm 0.6 - 1.0 / 0.6 - 0.9 cm LV Relative Wall Thickness 0.6 RV Internal Dim ED PLAX 2.9 cm LVOT Diameter 2.0 cm LV Diastolic Volume MOD BP 104.9 cm??? 67 - 155 / 56 - 104 cm??? LV Systolic Volume MOD BP 54.6 cm??? 22 - 58 / 19 - 49 cm??? LV Ejection Fraction MOD BP 48.0 % >= 55 % LV Cardiac Index MOD BP 1965.7 cm???/min???m??? LV Diastolic Volume MOD 4C 117.4 cm??? LV Systolic Volume MOD 4C 73.7 cm??? LV Ejection Fraction MOD 4C 37.2 % LV Cardiac Index MOD 4C 1706.7 cm???/min???m??? LV Diastolic Length 4C 7.6 cm LV Systolic Length 4C 6.2 cm LV Diastolic Volume MOD 2C 87.3 cm??? LV Systolic Volume MOD 2C 42.1 cm??? LV Ejection Fraction MOD 2C 51.8 % LV Cardiac Index MOD 2C 1766.5 cm???/min???m??? LV Diastolic Length 2C 7.0 cm LV Systolic Length 2C 6.3 cm LA Volume 61.9 cm??? 18 - 58 / 22 - 52 cm??? LA Volume Index 35.6 cm???/m??? 16 - 28 cm???/m??? DOPPLER AV Peak Velocity 111.0 cm/s AV Peak Gradient 4.9 mmHg AV Mean Velocity 80.5 cm/s AV Mean Gradient 2.9 mmHg AV Velocity Time Integral 21.4 cm LVOT Peak Velocity 99.6 cm/s LVOT Peak Gradient 4.0 mmHg LVOT Velocity Time Integral 19.7 cm LVOT Stroke Volume 64.8 cm??? LVOT Stroke Volume Index 37.9 ml/m??? LVOT Cardiac Index 2531.0 cm???/min???m??? AV Area Cont Eq vti 3.0 cm??? AV Area Cont Eq pk 3.0 cm??? MV Area PHT 3.5 cm??? Mitral E Point Velocity 53.2 cm/s Mitral A Point Velocity 77.9 cm/s Mitral E to A Ratio 0.7 MV Deceleration Time 218.4 ms MV E' Velocity 6.6 cm/s Mitral E to MV E' Ratio 8.1 TR Peak Velocity 223.1 cm/s TR Peak Gradient 19.9 mmHg Right Ventricular Systolic Press 23.8 mmHg FINDINGS Left Ventricle Left ventricular dilatation. Mild concentric left ventricular hypertrophy. No obvious regional wall motion abnormalities. Left ventricular ejection fraction is estimated at 50-55 %. Grade 1 diastolic dysfunction. Right Ventricle Mild right ventricular dilatation. Right ventricular systolic pressure within normal limits. Right Atrium Normal right atrial size. Left Atrium Mildly increased left atrial volume. Mitral Valve Structurally normal mitral valve. Mild mitral annular calcification. Trace mitral regurgitation. Aortic Valve Trileaflet aortic valve. No aortic stenosis. Trace aortic regurgitation. Tricuspid Valve Structurally normal tricuspid valve. Mild tricuspid regurgitation. Pulmonic Valve Structurally normal pulmonic valve. Pericardium No pericardial effusion. Aorta Mildly dilated aortic annulus. 3.8 cm CONCLUSIONS Left ventricular ejection fraction is estimated at 50-55 %. Grade 1 diastolic dysfunction. Mild concentric left ventricular hypertrophy. No obvious regional wall motion abnormalities. Mild LA dilatation Mild TR, RVSP 24 mmHg Mildly dilated aortic annulus measuring at 3.8 cm Previewed by: Dr Guy Holliday (Electronically Signed) Final Date: 19 May 2024 18:05
[2024-05-19] MEDS: VIT A,C & E-LUTEIN-MINERALS 1 EACH TAB PO SCH (20:05)
[2024-05-19] MEDS: ATORVASTATIN 80 MG TAB PO SCH (20:06)
[2024-05-19 23:03] LABS: Chol/HDL Ratio 2.24 Ratio
[2024-05-19 23:12] LABS: LDL Cholesterol,Calculated 67.2 mg/dL (0.0-131.0)
[2024-05-20] MEDS: ACETAMINOPHEN TAB 325 MG TAB PO PRN (07:57)
[2024-05-20] MEDS: oxyCODONE-APAP 5-325MG 1 EACH TAB PO PRN (07:57)
[2024-05-20] MEDS: MULTIVITAMINS, THERA 1 EACH TAB PO SCH (07:57)
[2024-05-20] MEDS: CHOLECALCIFEROL 25 MCG (1000 IU) TABLET PO SCH (07:58)
[2024-05-20] MEDS: ASPIRIN 81 MG PO SCH (07:58)
[2024-05-20 10:57] LABS: HCT 34.7 % (34.0-46.0); HGB 11.2 gm/dL (11.4-16.0); MCH 29.7 pg (25.0-35.0); MCHC 32.4 g/dL (31.0-37.0); MCV 91.6 fL (80.0-100.0); Mean Platelet Volume 7.3; Platelet Count 273 k/uL (150-450); RBC 3.78 m/uL (3.80-5.40); RDW 13.6 % (11.5-15.5); WBC 5.5 k/uL (3.8-10.6)
[2024-05-20 11:20] LABS: ALT 19 U/L (4-34); AST 21 U/L (14-36); African American GFR (CKD) >90 (>60 ml/min/1.73 sqM); Alkaline Phosphatase 90 U/L (38-126); Anion Gap 5 mmol/L; Blood Urea Nitrogen 18 mg/dL (7-17); Calcium 9.8 mg/dL (8.4-10.2); Carbon Dioxide 30 mmol/L (22-30); Chloride 103 mmol/L (98-107); Glucose 95 mg/dL (74-99); Magnesium 2.1 mg/dL (1.6-2.3); Non-African American GFR(CKD) 89 (>60 ml/min/1.73 sqM); Potassium 4.8 mmol/L (3.5-5.1); Sodium 138 mmol/L (137-145); Total Bilirubin 0.3 mg/dL (0.2-1.3); Total Protein 6.6 g/dL (6.3-8.2)
--- NOTE | 2024-05-20 14:20 | P.PN ---
Subjective Progress Note Date: 05/20/24 Hospital course: Patient is a very pleasant 73-year-old female with a past medical history of CAD, angina, hypertension, hyperlipidemia, and hypothyroidism. She presented to the emergency department on 05/18/2024 secondary to a chief complaint of chest pain followed by syncopal episode. Patient reports she was standing at her sink doing dishes and became diaphoretic and nauseous so she sat down at the table and thought she would rest and start to june when she suddenly began to have a severe pain to her midsternal chest radiating into her back. She reports the pain was so severe she reached for her nitro and took 1 tab under her tongue and waited 5 minutes but the pain did not go away and she noted she was now having a pressure-like sensation in her jaw so she took a second nitro tab and told her grandson that she does not feel right and he better call for an ambulance. She reports the next thing she remembers is waking up on the ground with her grandson and granddaughter at her side. Patient reports her grandson stated that after she told him to call the ambulance that she simply slumped over and passed out but luckily her granddaughter was there and caught her so she did not fall and they lowered her to the ground safely. She reports when she awoke the chest pain was still there along with the nausea but states by the time EMS got there the chest pain had resolved and the only thing that remained was her olivier sea. Patient reports 1 previous episode of this 2 years ago where she underwent a cardiac cath at [facility] and was told she had some coronary artery disease but not significant enough to stent at that time. Patient states she was at her daughter's house at that time and does not have a local co founder and ceo and therefore only followed up with her primary care doctor. On arrival to our facility, patient underwent evaluation in the emergency department. Vital signs upon arrival show blood pressure 96/58, heart rate 63, respiratory rate 18, temp 97.4 F, and SpO2 of 90% on room air.. EKG was completed showing normal sinus rhythm at 64 bpm with no significant T wave or ST abnormality showing no signs of acute ischemia upon personal review and interpretation. Chest x-ray completed negative for acute cardiopulmonary process. Labs were completed and reviewed. CBC showing stable normocytic anemia with hemoglobin of 11.0. Coagulation profile showing low PTT of 21.9 otherwise normal findings. BMP showing mild prerenal azotemia with BUN of 26 otherwise normal findings. Blood glucose was 92. Magnesium 2.1. Liver profile unremarkable. Troponin was negative at less than 0.012. Patient admitted under our services with consultation to cardiology. Troponins were trended overnight all negative at less than 0.012 x 3 draws. Repeat morning EKG was completed showing normal sinus rhythm at 78 bpm with no noted T wave or ST abnormalities upon personal review and interpretation. Patient reports she remains free from any further episodes of chest pain since arrival to our facility. Physical exam: Patient seen and fully evaluated at bedside this morning. She reported nausea has resolved. She states feeling a tight band around her chest up until this morning and currently states she feeling great. Vital signs reviewed and stable. General: Nontoxic, no distress and appears stated age. Derm: Skin warm and dry, normal coloration for ethnicity. Head: Atraumatic, normocephalic and symmetric. Eyes: EOM's intact, no lid lag, and anicteric sclera Mouth: no lip lesions, mucus membranes moist Cardiovascular: regular rate and rhythm with normal S1S2, no murmur, positive posterior tibial pulses bilaterally, and cap refill < 2 seconds. Lungs: Respirations even, regular, and unlabored on room air. Lungs CTA bilaterally, no rhonchi, no rales, no wheezing, and no accessory muscle usage. Abdominal: soft, nontender to palpation, no guarding, no appreciable organomegaly Ext: ROM intact. No gross muscle atrophy, no edema, no contractures Neuro: Speech clear, face symmetrical and CN II-XII grossly intact with no noted focal neuro deficits Psych: Alert and oriented to person, place, time, and situation. Appropriate and pleasant affect. Assessment and Plan of Care: Chest pain, acute coronary event ruled out History of CAD Hypertension Hyperlipidemia -Cardiology consulted, appreciate recommendations -Telemetry monitoring -Troponins trended and all negative at less than 0.012 x 3 draws. -Continue aspirin 81 mg daily, atorvastatin 80 mg nightly, losartan 100 mg daily, metoprolol 12.5 mg twice daily, and as needed sublingual nitro 0.4 mg tablets as needed for chest pain. -Lipid profile unremarkable.. -Echocardiogram completed showing a preserved EF of 50 to 55% with mild concentric left ventricular hypertrophy, mild left atrial dilation, mild tricuspid regurgitation, and mildly dilated aortic annulus measuring 3.8 cm. Elevated D-dimer -Order placed for CTA chest to rule out PE Hypothyroidism -Continue daily medication regimen with levothyroxine 125 mcg daily. Anxiety -Continue Effexor 75 mg daily. Data and imaging reviewed: -Labs completed and reviewed. Lipid profile unremarkable.. TSH low at less than 0.015 with a normal free T4 of 1.36. D-dimer elevated at 1.34. CBC showing stable normocytic anemia with hemoglobin of 11.2. BMP unremarkable with exception of slightly elevated BUN of 18. Magnesium 2.1. Liver profile unremarkable. -Echocardiogram completed showing a preserved EF of 50 to 55% with mild concentric left ventricular hypertrophy, mild left atrial dilation, mild tricuspid regurgitation, and mildly dilated aortic annulus measuring 3.8 cm. -Vital signs reviewed. Blood pressure 108/53, heart rate 65, respiratory rate 16, temp 97.9 F, and SpO2 of 97% on room air. CODE STATUS: Full code DVT prophylaxis: Lovenox Anticipated discharge date: Pending CTA results and cardiology clearance for discharge Anticipated discharge place: Home Patient was seen independently by Nurse Pracitioner. This document was prepared using [employer] dictation software. Please allow for errors in blender operator, while rare they do occur. Hardy Ball NP rendered care for this patient independently, reviewed the findings and plan as documented in the note above and agree with plan. I did not physically speak with or examine the patient on this date. Objective - Vital Signs Vital signs: Vital Signs Temp 98.1 F 05/19/24 20:00 Pulse 62 05/20/24 04:00 Resp 16 05/20/24 04:00 BP 126/74 05/20/24 04:00 Pulse Ox 98 05/20/24 07:41 FiO2 Intake & Output 05/19/24 05/20/24 05/20/24 18:59 06:59 18:59 Intake Total 540 Balance 540 Weight 66.5 kg Intake: Oral 540 Other: Voiding Method Toilet # Voids 1 - Labs CBC & Chem 7: 05/20/24 09:44 05/20/24 09:44 Labs: Abnormal Lab Results - Last 24 Hours (Table) 05/19/24 05/19/24 05/19/24 Range/Units 08:25 08:25 14:26 RBC 3.39 L (3.80-5.40) m/uL Hgb 10.5 L (11.4-16.0) gm/dL Hct 31.4 L (34.0-46.0) % D-Dimer 1.34 H (<0.60) mg/L FEU HDL Cholesterol 80.70 H (40.00-60.00) mg/dL TSH (0.465-4.680) mIU/L 05/19/24 Range/Units 14:26 RBC (3.80-5.40) m/uL Hgb (11.4-16.0) gm/dL Hct (34.0-46.0) % D-Dimer (<0.60) mg/L FEU HDL Cholesterol 77.60 H (40.00-60.00) mg/dL TSH <0.015 L (0.465-4.680) mIU/L
--- NOTE | 2024-05-20 15:14 | CT ---
EXAMINATION TYPE: CT chest angio for PE DATE OF EXAM: 05/20/2024 COMPARISON: CTA chest 2019 HISTORY: CHEST PAIN CT DLP: 261.7 mGycm. Automated Exposure Control for Dose Reduction was Utilized. CONTRAST: CTA scan of the thorax is performed with IV Contrast, patient injected with 100ML mL of Isovue 370, p ulmonary embolism protocol. MIP Images are created on CT scanner and reviewed. FINDINGS: LUNGS: There is a 7 x 5 mm medial right upper lobe nodule on image 22 which in retrospect is stable f rom prior and thus presuming benign. No focal consolidation. Mild linear scarring in the mid left dante g base. There is no pleural effusion or pneumothorax seen. The tracheobronchial tree is patent. MEDIASTINUM: There is satisfactory enhancement of the pulmonary artery and its branches, there is acu te segmental pulmonary embolism in the anterior aspect of the right lower lobe with subsegmental exte nsion axial image 100 through 104. No definite left-sided acute pulmonary embolus. No central acute p ulmonary embolism. Enhancement of the aorta measuring up to 4.1 cm at ascending level. Coronary arter y desiccation and/or stent. No cardiomegaly or pericardial effusion. Poorly visualized or hypoplastic thyroid gland. Fairly stable slightly prominent right hilar lymph node axial image 66. No new right ventricular dilatation. OTHER: No additional significant abnormality is seen. IMPRESSION: 1. There is small amount of acute segmental pulmonary embolism in the right lower lung with subsegmen chace extension. No CT evidence for RV strain. 2. No suspicious acute pulmonary parenchymal process. Results communicated to patient's nurse by radiographic technologist shortly after dictation was completed. [facility], , 05/20/2024 3:12 PM
[2024-05-20] MEDS ORDERED: HEPARIN SODIUM 1,000 UN/ML (10ML VL) IV PRN (15:22)
[2024-05-20] MEDS: HEPARIN SOD,PORK IN 0.45% NACL 25,000 UNIT in 0.45% NACL 1 250ML.BAG IV SCH (16:15)
[2024-05-20 16:18] LABS: INR 0.9 (<1.2); Partial Thromboplastin Time 24.6 sec (22.0-30.0); Prothrombin Time 10.4 sec (10.0-12.5)
[2024-05-20] MEDS: HEPARIN SODIUM 1,000 UN/ML (10ML VL) IV ONE ×2 (16:36→16:38)
--- NOTE | 2024-05-20 16:47 | US ---
EXAMINATION TYPE: US venous doppler duplex LE BI DATE OF EXAM: 05/20/2024 4:32 PM COMPARISON: NONE CLINICAL INDICATION: Female, 73 years old with history of rule out DVTs; PE, TECHNIQUE: The lower extremity deep venous system is examined utilizing real time linear array sonog nicholas with graded compression, color doppler sonography, and spectral doppler. SIDE PERFORMED: Bilateral FINDINGS: VESSELS IMAGED: Common Femoral Vein Deep Femoral Vein Greater Saphenous Vein * Femoral Vein Popliteal Vein Small Saphenous Vein * Proximal Calf Veins (* superficial vessels) Right Leg: Negative for DVT, Color Doppler imaging shows patency of the vessels. Spectral waveforms are within normal limits. Left Leg: Negative for DVT, Color Doppler imaging shows patency of the vessels. Spectral waveforms a re within normal limits. Probable Morrison's Cyst left pop fossa= 3.9 x 1.3 x 2.3 cm IMPRESSION: * No ultrasound evidence for deep venous thrombosis. * Left popliteal fossa cyst. [facility], , 05/20/2024 4:45 PM
--- NOTE | 2024-05-20 18:25 | P.PN ---
Subjective Progress Note Date: 05/20/24 HISTORY OF PRESENTING ILLNESS 73-year-old presented to the hospital with substernal chest pressure along with some diaphoresis and some nausea. She took 2 nitros which helped her chest pain but did worsen her nausea and lightheadedness and she felt presyncopal. At this time she is having like a bandlike sensation in her chest. She reports having mild headache. Troponins x 3 were negative ECG showed sinus rhythm, incomplete right bundle branch block, nonspecific ST changes. Progress note May 20 D-dimer came back 1.3. Follow-up CT angio chest showed subsegmental PE acute NT-proBNP 28, HbA1c 5.8, LDL 77, TSH less than 0.015, TSH 1.3. She is not on any thyroid replacement. REVIEW OF SYSTEMS 14 point review of system is negative except what is mentioned above in HPI. PHYSICAL EXAMINATION Vital signs reviewed. Head: Normocephalic. Eyes: Sclerae nonicteric. Neck: Brisk carotid upstroke, no jugular venous distention. Lungs: Clear to auscultation. Heart: Regular rate and rhythm, S1-S2, no S3, no murmur or rub. Abdomen: Soft nontender, positive bowel sounds. Extremities: No edema, intact distal pulses. Neuro: Alert, oritented, no focal deficits. Detailed neuro exam was not performe d. ASSESSMENT Atypical chest pain Lightheadedness, presyncope and nausea with nitro use Prior history of hypertension, currently hypotensive to normotensive History of mild nonobstructive CAD Hypothyroidism on levothyroxine 125 mcg Cardiac testing Stress test in 2019 was negative for ischemia by ECG. Echo showed EF of 50%, grade 1 diastolic dysfunction, mild MR, mild TR, RVSP less than [address] chest angio did not show significant coronary calcification. D-dimer came back 1.3. Follow-up CT angio chest showed subsegmental PE acute NT-proBNP 28, HbA1c 5.8, LDL 77, TSH less than 0.015, TSH 1.3. She is not on any thyroid replacement. PLAN Discontinue aspirin Start Eliquis DVT dosing. Continue Lipitor, metoprolol succinate 12.5 mg daily. Resume losartan at 25 mg daily. Monitor blood pressure and heart rate at home. Follow-up in outpatient cardiology office for treadmill echo stress test. Patient is okay to be discharged from cardiac standpoint. His heart flashes. Consider outpatient Holter monitor Objective - Vital Signs Vital signs: Vital Signs Temp 98.2 F 05/20/24 15:28 Pulse 82 05/20/24 15:28 Resp 16 05/20/24 15:28 BP 154/88 05/20/24 15:28 Pulse Ox 97 05/20/24 15:28 FiO2 Intake & Output 05/19/24 05/20/24 05/20/24 18:59 06:59 18:59 Intake Total 540 680 Balance 540 680 Weight 66.5 kg Intake: IV 20 Invasive Line 1 20 Oral 540 660 Other: Voiding Method Toilet Toilet # Voids 1 1 - Labs CBC & Chem 7: 05/20/24 09:44 05/20/24 09:44 Labs: Abnormal Lab Results - Last 24 Hours (Table) 05/19/24 05/20/24 05/20/24 Range/Units 14:26 09:44 09:44 RBC 3.78 L (3.80-5.40) m/uL Hgb 11.2 L (11.4-16.0) gm/dL BUN 18 H (7-17) mg/dL HDL Cholesterol 77.60 H (40.00-60.00) mg/dL
[2024-05-20] MEDS: Apixaban Initiation Dose--VTE 5 MG TAB PO SCH (20:37)
[2024-05-20 23:18] VITALS: RESP 16
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
[2024-05-21 06:57] LABS: HCT 36.1 % (34.0-46.0); HGB 11.7 gm/dL (11.4-16.0); MCH 29.9 pg (25.0-35.0); MCHC 32.5 g/dL (31.0-37.0); MCV 92.1 fL (80.0-100.0); Mean Platelet Volume 6.5; Platelet Count 260 k/uL (150-450); RBC 3.92 m/uL (3.80-5.40); RDW 13.4 % (11.5-15.5); WBC 5.7 k/uL (3.8-10.6)
[2024-05-21 07:11] LABS: ALT 19 U/L (4-34); AST 22 U/L (14-36); African American GFR (CKD) >90 (>60 ml/min/1.73 sqM); Alkaline Phosphatase 88 U/L (38-126); Anion Gap 2 mmol/L; Blood Urea Nitrogen 20 mg/dL (7-17); Calcium 9.6 mg/dL (8.4-10.2); Carbon Dioxide 32 mmol/L (22-30); Chloride 103 mmol/L (98-107); Glucose 108 mg/dL (74-99); Magnesium 2.1 mg/dL (1.6-2.3); Non-African American GFR(CKD) >90 (>60 ml/min/1.73 sqM); Potassium 4.4 mmol/L (3.5-5.1); Sodium 137 mmol/L (137-145); Total Bilirubin 0.3 mg/dL (0.2-1.3); Total Protein 6.6 g/dL (6.3-8.2)
[2024-05-21] MEDS: LOSARTAN 25 MG TAB PO SCH (08:45)
[2024-05-21 13:05] VITALS: BP 155/78; TEMP 98.1
[2024-05-21 14:21] VITALS: PULSE 76
--- NOTE | 2024-05-21 15:35 | P.DS ---
Providers Date of admission: 05/20/24 18:11 Expected date of discharge: 05/21/24 Attending physician: Erin Lewis MD Consults: 05/20/24 15:27 Consult Physician Routine Consulting Provider: Lauro Mendez Consult Reason/Comments: Acute segmental pulmonary embolism in the right lower lung with subsegmenta Do you want consulting provider notified?: Yes Primary care physician: [facility] Course: Discharge Diagnosis: Acute Pulmonary Emboli. PE unprovoked. Patient does have a history of nicotine dependence via vaping but otherwise no risk factors for acute pulmonary emboli. Patient discharged home on Eliquis VTE starter kit and with a 30-day event monitor. Discussed with patient and recommended outpatient follow-up with project management analyst for hypercoagulable workup. Chest pain, acute coronary event ruled out. History of CAD. Hypertension Hyperlipidemia Elevated D-dimer Hypothyroidism Anxiety Hospital course: Patient is a very pleasant 73-year-old female with a past medical history of CAD, angina, hypertension, hyperlipidemia, and hypothyroidism. She presented to the emergency department on 05/18/2024 secondary to a chief complaint of chest pain followed by syncopal episode. On arrival to our facility, patient underwent evaluation in the emergency department. Vital signs upon arrival show blood pressure 96/58, heart rate 63, respiratory rate 18, temp 97.4 F, and SpO2 of 90% on room air.. EKG was completed showing normal sinus rhythm at 64 bpm with no significant T wave or ST abnormality showing no signs of acute ischemia upon personal review and interpretation. Chest x-ray completed negative for acute cardiopulmonary process. Labs were completed and reviewed. CBC showing stable normocytic anemia with hemoglobin of 11.0. Coagulation profile showing low PTT of 21.9 otherwise normal findings. BMP showing mild prerenal azotemia with BUN of 26 otherwise normal findings. Blood glucose was 92. Magnesium 2.1. Liver profile unremarkable. Troponin was negative at less than 0.012. Patient admitted under our services with consultation to cardiology. Troponins were trended overnight all negative at less than 0.012 x 3 draws. Repeat morning EKG was completed showing normal sinus rhythm at 78 bpm with no noted T wave or ST abnormalities upon personal review and interpretation. Echocardiogram completed showing a preserved EF of 50 to 55% with mild concentric left ventricular hypertrophy, mild left atrial dilation, mild tricuspid regurgitation, and mildly dilated aortic annulus measuring 3.8 cm. Continued to have a reports of a tight banding sensation around her chest. D-dimer was completed resulting elevated at 1.34. CTA chest then completed. CTA revealing small amount of acute segmental pulmonary embolism in the right lower lung with subsegmental extension, no CT evidence for RV strain stable 7 x 5 mm medial right upper lobe nodule reported to be unchanged when compared to CTA chest in 2020. Patient started on high intensity heparin infusion for treatment of acute PE and transitioned to oral DOAC with Eliquis. She was evaluated by crab catcher and tone regulator and cleared from their perspective for outpatient follow-up in their office. Patient reports she is free from any complaints at this time. Patient medically optimized for discharge. She is to follow-up outpatient with PCP in 1 to 2 days, tone regulator in 1 to 2 weeks, crab catcher in 2 weeks, Physical exam: Vital signs reviewed and stable. General: Nontoxic, no distress and appears stated age. Derm: Skin warm and dry, normal coloration for ethnicity. Head: Atraumatic, normocephalic and symmetric. Eyes: EOM's intact, no lid lag, and anicteric sclera Mouth: no lip lesions, mucus membranes moist Cardiovascular: regular rate and rhythm with normal S1S2, no murmur, positive posterior tibial pulses bilaterally, and cap refill < 2 seconds. Lungs: Respirations even, regular, and unlabored on room air. Lungs CTA bilaterally, no rhonchi, no rales, no wheezing, and no accessory muscle usage. Abdominal: soft, nontender to palpation, no guarding, no appreciable organomegaly Ext: ROM intact. No gross muscle atrophy, no edema, no contractures Neuro: Speech clear, face symmetrical and CN II-XII grossly intact with no noted focal neuro deficits Psych: Alert and oriented to person, place, time, and situation. Appropriate and pleasant affect. A total of 38 minutes of time were spent preparing this complex discharge summary. Pt was discharged on 05/21/24 3:21 PM Patient was seen independently by Nurse Practitioner. This document was prepared using [employer] dictation software. Please allow for errors in photographer apprentice lithographic while rare they do occur. Hardy Ball NP rendered care for this patient independently, reviewed the findings and plan as documented in the note above. I did not physically speak with or examine the patient on this date. Patient Condition at Discharge: Stable Plan - Discharge Summary Discharge Rx Participant: No New Discharge Prescriptions: New Losartan [Cozaar] 25 mg PO DAILY 30 Days #30 tab Apixaban [Eliquis Starter Pack (for VTE)] 5 - 10 mg PO DIRECTED 30 Days #1 each Continue Multivitamins, Thera [Multivitamin (formulary)] 1 tab PO DAILY Venlafaxine HCl [Venlafaxine HCl ER] 75 mg PO DAILY Cyclobenzaprine [Flexeril] 10 mg PO TID ALPRAZolam [Xanax] 0.25 mg PO DAILY PRN PRN Reason: Anxiety Metoprolol Tartrate [Lopressor] 12.5 mg PO BID Atorvastatin [Lipitor] 20 mg PO HS oxyCODONE-APAP 5-325MG [Percocet 5-325 mg] 1 tab PO TID Gabapentin [Neurontin] 100 mg PO BID Vit C/E/Zn/Coppr/Lutein/Zeaxan [Preservision Areds 2 Softgel] 1 cap PO BID polyethylene glycoL 3350 [Miralax] 17 gm PO DAILY Levothyroxine Sodium [Synthroid] 125 mcg PO DAILY Cholecalciferol (Vitamin D3) [Vitamin D3 (50 Mcg = 2000 Iu)] 50 mcg PO DAILY Discontinued Losartan Potassium 100 mg PO DAILY Nabumetone [Relafen] 750 mg PO BID Discharge Medication List Cyclobenzaprine [Flexeril] 10 mg PO TID 12/25/14 [History] Multivitamins, Thera [Multivitamin (formulary)] 1 tab PO DAILY 12/25/14 [History] Venlafaxine HCl [Venlafaxine HCl ER] 75 mg PO DAILY 12/25/14 [History] ALPRAZolam [Xanax] 0.25 mg PO DAILY PRN 05/18/24 [History] Atorvastatin [Lipitor] 20 mg PO HS 05/18/24 [History] Cholecalciferol (Vitamin D3) [Vitamin D3 (50 Mcg = 2000 Iu)] 50 mcg PO DAILY 05/18/24 [History] Gabapentin [Neurontin] 100 mg PO BID 05/18/24 [History] Levothyroxine Sodium [Synthroid] 125 mcg PO DAILY 05/18/24 [History] Metoprolol Tartrate [Lopressor] 12.5 mg PO BID 05/18/24 [History] Vit C/E/Zn/Coppr/Lutein/Zeaxan [Preservision Areds 2 Softgel] 1 cap PO BID 05/18/24 [History] oxyCODONE-APAP 5-325MG [Percocet 5-325 mg] 1 tab PO TID 05/18/24 [History] polyethylene glycoL 3350 [Miralax] 17 gm PO DAILY 05/18/24 [History] Apixaban [Eliquis Starter Pack (for VTE)] 5 - 10 mg PO DIRECTED 30 Days #1 each 05/21/24 [Rx] Losartan [Cozaar] 25 mg PO DAILY 30 Days #30 tab 05/21/24 [Rx] Follow up Appointment(s)/Referral(s): Guy Holliday MD [Medical Doctor] - 1 Week (Office will call you with your appointment) Radha Vicente MD [STAFF PHYSICIAN] - 1 Week Lauro Mendez DO [Doctor of Osteopathic Medicine] - 1 Week Sandip Gimenez DO [Primary Care Provider] - 05/29/24 2:20 pm Patient Instructions/Handouts: Pulmonary Embolism (DC), Syncope (DC) Activity/Diet/Wound Care/Special Instructions: Activity: As tolerated. Take breaks as needed. Diet: Heart healthy and carb consistent diet. Avoid salts, or foods with hidden salts such as canned or boxed foods and frozen dinners. Extra salt makes your heart work harder and traps the fluid in your body for longer. Special Instructions: Take all of your medications as directed and remember to keep all of your doctor's appointments and follow-up as needed. As we discussed, you are being discharged home on a 30-day event monitor to monitor for any underlying arrhythmias such as atrial fibrillation that could have provoked your chest pain, syncopal episode and findings of PE. You will need to follow-up with Dr. Holliday in his office in 2 weeks. Also as we discussed at bedside it is recommended that you follow-up with project management analyst for further workup to rule out underlying clotting disorder. Thank you for allowing us to participate in your care, it was truly a pleasure having you for our patient!!! Discharge Disposition: HOME SELF-CARE
== END 2024-05-21 16:21 | disposition home or self-care (01) | DRG 176 ==
LOC: EC 18:40 → 3SCARD 20:17 → OBSVTOIN 05-20 18:11 → 3SCARD 05-20 20:53
PROVIDERS: ADMIT Internal Medicine; ATTEND Internal Medicine
DX: I26.93 Single subsegmental thrombotic pulmonary embolism without acute cor pulmonale (principal); I25.10 Atherosclerotic heart disease of native coronary artery without angina pectoris; R55 Syncope and collapse; T46.3X5A Adverse effect of coronary vasodilators, initial encounter; I45.10 Unspecified right bundle-branch block; I10 Essential (primary) hypertension; D64.9 Anemia, unspecified; R07.89 Other chest pain; F41.9 Anxiety disorder, unspecified; F39 Unspecified mood [affective] disorder; Z79.890 Hormone replacement therapy; F17.290 Nicotine dependence, other tobacco product, uncomplicated; I07.1 Rheumatic tricuspid insufficiency; E03.9 Hypothyroidism, unspecified; E78.5 Hyperlipidemia, unspecified; Z79.1 Long term (current) use of non-steroidal anti-inflammatories (NSAID); Z79.82 Long term (current) use of aspirin; Z79.899 Other long term (current) drug therapy; Z90.710 Acquired absence of both cervix and uterus; Z88.8 Allergy status to other drugs, medicaments and biological substances; X58.XXXA Exposure to other specified factors, initial encounter
CPT/HCPCS: 36415; 71046; 71275; 80053; 80061; 82607; 82747; 83036; 83540; 83550; 83735; 83880; 84439; 84443; 84484; 85025; 85027; 85379; 85610; 85730; 93005; 93270; 93306; 93970; 94760; 96361; 96372; 96374; 99285

== ENCOUNTER → 2025-01-22 | Outpatient (CLI) | payer MEDICARE ==
[2025-01-22 12:29] LABS: African American GFR (CKD) >90 (>60 ml/min/1.73 sqM); Blood Urea Nitrogen 17 mg/dL (7-17); Non-African American GFR(CKD) >90 (>60 ml/min/1.73 sqM)
--- NOTE | 2025-01-22 13:58 | CT ---
CT chest with contrast. HISTORY: Pulmonary embolism COMPARISON: CTA chest dated 05/20/2024 TECHNIQUE: Multiple axial images were obtained through the thorax following the uneventful administra tion of nonionic IV contrast material. FINDINGS: The lungs are clear of consolidative/airspace density or abnormal interstitial density. There are 2 stable approximate 7 mm nodule within the right upper lobe and one in the right lower lob e. There is no new or suspicious lung mass or nodule. There is no pleural effusion, pleural thickening or pneumothorax. There is stable 4 cm dilatation of the ascending thoracic aorta. There are a few tiny stable filling defects within the subsegmental branches in the right lower lobe, unchanged compared to previous There is no mediastinal, hilar or axillary adenopathy.. Limited scanning of the upper abdomen reveals a gallbladder polyp or stone No focal osseous lesions are seen. IMPRESSION: 1. 2 stable 7 mm nodules in the right lung. 2. No acute cardiopulmonary disease. 3. Stable 4 cm dilatation of the ascending thoracic aorta. 4. No change in the small subsegmental emboli within the right lower lobe. [facility], Workstation: [id number] 01/22/2025 1:56 PM
== END | disposition home or self-care (01) ==
LOC: RADCTMAIN 11:39
PROVIDERS: ATTEND Internal Medicine
DX: I77.810 Thoracic aortic ectasia (principal); R91.8 Other nonspecific abnormal finding of lung field; I26.99 Other pulmonary embolism without acute cor pulmonale
CPT/HCPCS: 82565; 84520; 71260; 36415; Q9967